=== PATIENT | male | born 1960 | race Caucasian/White ===

== ENCOUNTER 2017-07-27 18:26 | Emergency (ER) | payer OTHER, SELFPAY ==
[2017-07-27 18:26] VITALS: BP 151/94; PULSE 109; RESP 17; TEMP 36.6; O2SAT 95; BMI 40.1
[2017-07-27] MEDS: Ondansetron 4 MG/2 ML Vial IV (19:19)
[2017-07-27] MEDS: 0.9% Normal Saline 1,000 ML 1000 ML IV (19:19)
[2017-07-27] MEDS: Morphine 4 MG/ML Syringe IV (19:19)
--- NOTE | 2017-07-27 19:19 | ED.VISSUMM ---
- ER Visit Summary Date of Service: 07/27/17 Chief Complaint: Abdominal pain History of Present Illness: The patient is a 56 M presenting with abdominal pain ?2 days. Patient has diffuse abdominal pain. He went to urgent care on Thursday was started on steroids and doxycycline for bronchitis. He states sometimes the pain is worse when he coughs but otherwise has the pain consistently. He states he has been urinating frequently. He has history of diabetes. He does not check his blood sugar regularly. He denies nausea, vomiting, diarrhea. He had a fever on Thursday but is afebrile today. Denies chest pain or shortness of breath. Physical Examination: Vitals are stable. Patient is afebrile. Alert no acute distress. Pulse ox 95% on room air HEENT exam is unremarkable. Neck is supple. Lungs are clear and equal bilaterally. Heart is regular rate and rhythm. Abdomen is soft mild diffuse tenderness with no rebound or guarding. Extremities are unremarkable. Skin is warm and dry. No focal neurologic deficit. Remainder of exam is unremarkable. Emergency Department Course and Treatment: Patient is given IV fluids, morphine, Zofran. CBC is normal. Chemistries show glucose 513, BUN 49, creatinine 2.56. Anion gap is normal. Liver enzymes unremarkable. Lipase is 523. Urinalysis unremarkable. Patient was given IV fluids, insulin. Repeat BGT is 339. CT abdomen pelvis shows cholelithiasis, no biliary dilatation, possible focal right basilar infiltrate. Chest x-ray was obtained and is normal. He is currently taking doxycycline. He is advised to continue this medication. Records obtained from the [place] and his previous creatinine was 2.2. He is advised to follow-up with the [place]. He is advised to continue his insulin at home and recheck his blood sugars. He has had no vomiting in the emergency department. He is feeling improved. He is given a prescription for Bentyl. Advised to follow-up with his primary care physician. Advised return to ED if worsening complaints. Disposition: Discharge home Impression: Abdominal pain, hyperglycemia This note was generated with [employer] dictation software. It may contain incorrect words, spelling, and punctuation that were not noted in review of the chart prior to signing ED Disposition - Plan for ED Patient: Chief Complaint: Abd Pain Referrals: [facility] [Primary Care Provider] -
--- NOTE | 2017-07-27 19:27 | CT_ITS ---
STUDY: CT ABDOMEN AND PELVIS WITHOUT CONTRAST REASON FOR EXAM: Male, 56 years old. Pain RADIATION DOSAGE (If Supplied By Facility): CTDIvol = ( 19.20 ) mGy, DLP = ( 1041.02 ) mGycm TECHNIQUE: Transaxial images were obtained from the dome of the diaphragm to the symphysis pubis without oral contrast, and without intravenous contrast. Sagittal and coronal images were reconstructed. Individualized dose optimization techniques were used for this CT. COMPARISON: None. FINDINGS: Calcified right lung base granuloma an possible focal infiltrate. The visualized portions of the heart are within normal limits. Normal liver. Cholelithiasis. No significant dilatation of the extrahepatic biliary system. Normal spleen. Normal pancreas. Normal bilateral adrenal glands. Normal right kidney. Normal left kidney. Normal visualized stomach. Normal small intestine. Normal colon. The appendix is visualized and appears normal. Calcified abdominal aorta. Normal inferior vena cava. Normal retroperitoneum. Normal urinary bladder. Normal abdominal wall. Normal osseous structures. CT/Abdomen/Pelvis without Cont IMPRESSION: Cholelithiasis. Biliary dilatation. Possible focal right basilar infiltrate. Electronically Signed: Jhon Salomon DO at 20:00 EDT Tel [phone], Service support ,
[2017-07-27 19:36] LABS: Absolute Lymphocyte Count 0.87 X10^3/ul (0.83-4.51); Absolute Neutrophil Count 5.7 X10^3/uL (2.0-7.7); Basophil# 0.02 X10^3/uL; Basophil% 0.3 % (0-1); Hematocrit 42.2 % (40-54); Hemoglobin 14.3 g/dl (13.0-16.5); Lymphocyte # 0.87 X10^3/ul (4.0); Lymphocyte % 11.8 % (19-41); Mean Corp Hgb Conc 33.9 g/gl (32-36); Mean Corpuscular Hgb 29.1 pg (27.0-32.0); Mean Corpuscular Volume 85.8 fL (80-94); Monocyte# 0.76 X10^3/uL; Monocyte% 10.3 % (0-10); Neutrophil # 5.72 X10^3/uL (2.7-7.7); Neutrophil % 77.3 % (47-70); Platelet Count 197 K/mm3 (150-450); RBC Distribution Width CV 13.4 % (11.6-14.6); RBC Distribution Width SD 41.9 fl (35.1-43.9); Red Blood Count 4.92 M/mm3 (4.6-6.2); White Blood Count 7.4 K/mm3 (4.4-11.0)
[2017-07-27 19:40] LABS: POSITIVE COUNT NO; POSITIVE DIFFERENTIAL NO; POSITIVE MORPHOLOGY NO
[2017-07-27 20:11] LABS: ALB/GLOB Ratio 0.7 RATIO (0.9-2.4); AST(SGOT) 18 U/L (15-37); Alanine Aminotransfer ALT/SGPT 44 U/L (16-61); Albumin, Serum 3.1 g/dL (3.2-5.0); Alkaline Phosphatase 99 U/L (45-117); Anion Gap 12 (5-15); BUN 49 mg/dL (7-18); BUN/Creat Ratio 19.1 RATIO (10-20); Calcium,Total 8.4 mg/dL (8.5-10.1); Chloride 98 mmol/L (98-107); Creatinine, Serum 2.56 mg/dL (0.70-1.30); EST Glomerular Filtration Rate 28 mL/min (>60); Est Glom Filt Rate - Afr Amer 34 mL/min (>60); Estimated Creatinine Clearance 29.77 ml/min; Globulin 4.2 g/dL (2.2-4.2); Glucose 513 mg/dL (74-106); Lipase 523 U/L (73-393); Potassium 4.5 mmol/L (3.5-5.1); Protein, Total 7.3 g/dL (6.4-8.2); Sodium Level 134 mmol/L (136-145)
--- NOTE | 2017-07-27 20:13 | ED.RN ---
Critical glucose 513, RN and aware.
[2017-07-27 20:15] LABS: Bacteria 0 SEEN /hpf (None Seen); Mucous, Urine 0 SEEN /hpf (<or=2+); Squamous Epithelial Cells - UA 0 SEEN /hpf (0-5); White Blood Cells 0 SEEN /hpf (0-5)
[2017-07-27 20:16] LABS: Color, Urine Yellow (Yellow); Glucose, Dipstick 1000 mg/dl (Normal); Ketone-Dipstick Negative (Negative); Leukocyte Esterase-Dipstick Negative /ul (Negative); Nitrite-Dipstick Negative (Negative); Occult Blood-Urine 25 /ul (Negative); Protein-Dipstick 500 mg/dl (Negative); Specific Gravity, Urine 1.015 (1.002-1.030); Urine Bilirubin Dipstick Negative (Negative); Urine Clarity Clear (Clear); Urine Urobilinogen Normal (Normal)
--- NOTE | 2017-07-27 20:18 | ED.RN ---
Dr. Vigil aware of glucose level
[2017-07-27] MEDS: 0.9% Normal Saline 1,000 ML 999 ML IV (20:21)
[2017-07-27 20:26] LABS: Red Blood Cells-Urine 0-5 SEEN /hpf (0-5)
--- NOTE | 2017-07-27 20:52 | RAD_ITS ---
STUDY: X-RAY CHEST REASON FOR EXAM: Male, 56 years old. Cough TECHNIQUE: Frontal and lateral views COMPARISON: None. FINDINGS: The lungs are clear and expanded. There is no demonstrated pleural abnormality. Normal size heart. Normal mediastinum and emile. Normal visualized pulmonary arteries. Normal visualized aortic arch and descending thoracic aorta. Mild degenerative changes of the thoracic spine. Normal visualized ribs, clavicles, and shoulders. There is no demonstrated abnormality of the visualized soft tissue structures of the upper abdomen. RAD/Chest PA and Lateral IMPRESSION: Normal x-ray examination of the chest. Electronically Signed: Jhon Salomon DO at 21:12 EDT Tel [phone], Service support ,
[2017-07-27 21:35] LABS: Bedside Glucose 339 mg/dL (70-110)
--- NOTE | 2017-07-27 22:32 | ED.DEP ---
ED Disposition - Plan for ED Patient: Chief Complaint: Abd Pain Instructions: ED Abdominal Pain Unkn Cause Prescriptions: Dicyclomine HCl [Bentyl] 20 mg PO TIDAC #20 capsule Referrals: [facility] [Primary Care Provider] -
[2017-07-27] MEDS: Dicyclomine 10 MG Capsule 20 MG PO (22:33)
[2017-07-27 22:35] VITALS: BP 147/74; PULSE 72; RESP 16; O2SAT 93
== END 2017-07-27 22:40 | disposition home or self-care (01) ==
PROVIDERS: Emergency Provider Emergency Medicine
DX: R10.9 Unspecified abdominal pain (principal); E11.65 Type 2 diabetes mellitus with hyperglycemia; Z79.4 Long term (current) use of insulin; I10 Essential (primary) hypertension; E78.00 Pure hypercholesterolemia, unspecified; Z79.899 Other long term (current) drug therapy
CPT/HCPCS: 71046; 74176; 80053; 81001; 82962; 83690; 85025; 96361; 96374; 96375; 99283; J7030; A4216; J2405

== ENCOUNTER 2018-03-01 01:02 | Emergency (ER) | payer OTHER, SELFPAY ==
[2018-03-01 01:04] VITALS: BP 170/97; PULSE 100; RESP 18; TEMP 36.6; O2SAT 99; BMI 37.3
--- NOTE | 2018-03-01 01:12 | EKG12_ITS ---
Test Reason : WEAKNESS Blood Pressure : / mmHG Vent. Rate : 084 BPM Atrial Rate : 084 BPM P-R Int : 178 ms QRS Dur : 102 ms QT Int : 402 ms P-R-T Axes : 050 018 033 degrees QTc Int : 475 ms Normal sinus rhythm Normal ECG Confirmed by ALTON OLIVER, ELIZABETH ([id number]), editor magazine JOSEPH PERRY ([id number]) on 03/03/2018 11:11:39 AM Referred By: ANDRA Confirmed By:ELIZABETH DANG MD
[2018-03-01 01:21] LABS: Bedside Glucose 260 mg/dL (70-110)
[2018-03-01] MEDS: 0.9% Normal Saline 1,000 ML 1000 ML IV ×2 (01:22→02:09)
[2018-03-01 01:34] LABS: Absolute Lymphocyte Count 2.02 X10^3/ul (0.83-4.51); Absolute Neutrophil Count 5.9 X10^3/uL (2.0-7.7); Basophil# 0.09 X10^3/uL; Eosinophil# 0.26 X10^3/uL; Eosinophils% 2.9 % (0-5); Hematocrit 44.6 % (40-54); Hemoglobin 15.3 g/dl (13.0-16.5); Lymphocyte # 2.02 X10^3/ul (4.0); Lymphocyte % 22.1 % (19-41); Mean Corp Hgb Conc 34.3 g/gl (32-36); Mean Corpuscular Hgb 29.4 pg (27.0-32.0); Mean Corpuscular Volume 85.6 fL (80-94); Mean Platelet Vol. 9.7 fl (6.2-12.0); Monocyte# 0.78 X10^3/uL; Monocyte% 8.6 % (0-10); Neutrophil # 5.91 X10^3/uL (2.7-7.7); Neutrophil % 64.7 % (47-70); Platelet Count 268 K/mm3 (150-450); RBC Distribution Width CV 12.9 % (11.6-14.6); RBC Distribution Width SD 40.2 fl (35.1-43.9); Red Blood Count 5.21 M/mm3 (4.6-6.2); White Blood Count 9.1 K/mm3 (4.4-11.0)
[2018-03-01 01:40] LABS: POSITIVE COUNT NO; POSITIVE DIFFERENTIAL NO; POSITIVE MORPHOLOGY NO
[2018-03-01 01:49] LABS: AST(SGOT) 14 U/L (15-37); Alanine Aminotransfer ALT/SGPT 43 U/L (16-61); Albumin, Serum 3.8 g/dL (3.2-5.0); Alkaline Phosphatase 90 U/L (45-117); Anion Gap 9 (5-15); BUN 39 mg/dL (7-18); BUN/Creat Ratio 18.2 RATIO (10-20); Calcium,Total 9.7 mg/dL (8.5-10.1); Chloride 101 mmol/L (98-107); Creatinine, Serum 2.14 mg/dL (0.70-1.30); EST Glomerular Filtration Rate 34 mL/min (>60); Est Glom Filt Rate - Afr Amer 41 mL/min (>60); Estimated Creatinine Clearance 36.46 ml/min; Globulin 4.4 g/dL (2.2-4.2); Glucose 237 mg/dL (74-106); Potassium 4.5 mmol/L (3.5-5.1); Protein, Total 8.2 g/dL (6.4-8.2); Sodium Level 138 mmol/L (136-145)
[2018-03-01 02:15] LABS: Bacteria 0 SEEN /hpf (None Seen); Mucous, Urine 0 SEEN /hpf (<or=2+); Red Blood Cells-Urine 0 SEEN /hpf (0-5); Squamous Epithelial Cells - UA 0 SEEN /hpf (0-5); White Blood Cells 0 SEEN /hpf (0-5)
[2018-03-01 02:26] LABS: Color, Urine Yellow (Yellow); Glucose, Dipstick 1000 mg/dl (Normal); Ketone-Dipstick Negative (Negative); Leukocyte Esterase-Dipstick Negative /ul (Negative); Nitrite-Dipstick Negative (Negative); Occult Blood-Urine Negative /ul (Negative); Protein-Dipstick 500 mg/dl (Negative); Urine Bilirubin Dipstick Negative (Negative); Urine Clarity Clear (Clear); Urine Urobilinogen Normal (Normal)
--- NOTE | 2018-03-01 03:01 | ED.DCSUM_ITS ---
- ER Visit Summary Date of Service: 03/01/18 Chief Complaint: Muscle cramps History of Present Illness: The patient is a 57 M with muscle cramping and spasms for the past 1 week. These became significantly worse tonight. He states he checked his blood sugar and it read high at home. He took 60 units of NovoLog when his normal dose will be 50 presented to the ER stating he just did not feel right. He took his NovoLog approximately 2 and half hours prior to arrival. Patient denies chest pain or shortness of breath. He denies fever or chills. He has a history of type 2 diabetes, hypertension, high cholesterol. Physical Examination: Vital signs significant for blood pressure of 170/97 with a heart rate of 100. Head and neck examination is grossly unremarkable. Heart is regular rate and rhythm. Lung sounds are clear. Abdomen is soft nontender. Extremity examination was mild muscle tenderness in the legs. He has strong distal pulses with no significant edema. He has good strength and sensation on testing. Test Results: EKG is sinus 84 with no sign of acute ischemia. CBC is normal. Chemistry studies reveal glucose of 237. His BUN is 39 and creatinine is 2.14. Per prior visit notes his baseline creatinine is in the low 2 range. LFTs norm al. Urinalysis is significant for glucose, but no sign of infection. Serum acetone is negative. Emergency Department Course and Treatment: Patient was given 2 L of IV fluid. On repeat evaluation he is resting much more comfortably. He is advised to check his blood sugars daily and increase his fluids. He will follow-up with his doctor at the [place]. Treatment Plan: [] Disposition: Discharge Impression: 1. Hyperglycemia, improved 2. Myalgias, improved This note was generated with [employer] dictation software. It may contain incorrect words, spelling, and punctuation that were not noted in review of the chart prior to signing ED Disposition - Plan for ED Patient: Disposition: Home or Assisted Living Chief Complaint: Other, Pain/Inj Instructions: ED Hyperglycemia Diabetic, ED Muscle Aching Referrals: [facility] [Primary Care Provider] - As Needed
--- NOTE | 2018-03-01 03:03 | ED.DEP ---
ED Disposition - Plan for ED Patient: Disposition: Home or Assisted Living Chief Complaint: Other, Pain/Inj Instructions: ED Muscle Aching, ED Hyperglycemia Diabetic Referrals: [facility] [Primary Care Provider] - As Needed
[2018-03-01 03:08] VITALS: PULSE 68; PULSE 70; RESP 14; RESP 15; O2SAT 99
== END 2018-03-01 03:20 | disposition home or self-care (01) ==
PROVIDERS: Emergency Provider Emergency Medicine
DX: E11.65 Type 2 diabetes mellitus with hyperglycemia (principal); I10 Essential (primary) hypertension; E78.00 Pure hypercholesterolemia, unspecified; M79.10 Myalgia, unspecified site; Z79.4 Long term (current) use of insulin; Z79.899 Other long term (current) drug therapy; Z87.891 Personal history of nicotine dependence
CPT/HCPCS: 80048; 80076; 81001; 82009; 82962; 85025; 93005; 96360; 96361; 99284; J7030

== ENCOUNTER 2018-06-25 04:54 | Emergency (ER) | payer OTHER, SELFPAY ==
[2018-06-25 04:55] VITALS: BP 203/113; PULSE 81; RESP 16; TEMP 36.6; O2SAT 96; BMI 38.8
[2018-06-25] MEDS: Ketorolac 60 MG/2 ML Vial IM (05:13)
--- NOTE | 2018-06-25 05:19 | ED.DCSUM_ITS ---
- ER Visit Summary Date of Service: 06/25/18 Chief Complaint: Neck and right shoulder pain History of Present Illness: The patient is a 57 M with neck and right shoulder pain for 2 weeks. He came in overnight tonight because he could not sleep. He says he has chronic neck pain but the shoulder pain is new. It is in his right trapezius region. Nothing seemed to bring it on. Nothing seems to help it. He has tried Aleve and some topical medicine that his doctor prescribed. He denies any other associated issues like chest pain or shortness of breath. Denies weakness or numbness. Denies any vision changes, facial droop. Denies fevers or skin changes. Physical Examination: Afebrile and vital signs unremarkable except for a blood pressure of 203/113. Head and neck normal inspection. Neck is nontender. Right trapezius tender to palpation. Clavicle normal. Shoulder normal. Good range of motion. Arm unremarkable. Good strength and sensation. Skin appears normal. Cranial nerves grossly intact. Test Results: None performed Emergency Department Course and Treatment: Patient presents with myofascial pain. He cannot tolerate opioids. He was treated with Toradol. He was given a prescription for Flexeril. He did not receive a muscle relaxer here as he did not have of a ride. There is no indication for imaging or diagnostic testing. I do not believe this is referred pain, cardiac, respiratory, or vascular. No concerning neurologic findings. Patient is also very hypertensive. He said he ran out of his medications and is waiting for his mail order medications. He was able to give me the dose of his diltiazem and Zestoretic. He was given a dose here and a prescription. He was educated about hypertensive symptoms and will return if he has any issues, otherwise follow-up with his doctor for recheck. Treatment Plan: As above Disposition: Discharge Impression: 1. Right shoulder pain 2. Hypertension This note was generated with [employer] dictation software. It may contain incorrect words, spelling, and punctuation that were not noted in review of the chart prior to signing ED Disposition - Plan for ED Patient: Disposition: Home or Assisted Living Instructions: Neck Problems: Relieving Your Symptoms Prescriptions: RX: Diltiazem CD [Cardizem CD] 480 mg PO DAILY 30 Days #60 cap Lisinopril/Hydrochlorothiazide [Zestoretic 20-25 mg Tablet] 1 ea PO DAILY 30 Days #30 tab Cyclobenzaprine [Flexeril] 10 mg PO TID PRN #20 tab PRN Reason: Muscle Spasm Referrals: [facility] [Primary Care Provider] -
[2018-06-25] MEDS: dilTIAZem CD 240 MG Capsule 480 MG PO (05:54)
[2018-06-25] MEDS: Lisinopril 20 MG Tablet PO (05:55)
[2018-06-25] MEDS: hydroCHLOROthiazide 25 MG Tablet PO (05:55)
[2018-06-25 05:57] VITALS: BP 200/98; PULSE 75; RESP 18; O2SAT 96
== END 2018-06-25 05:58 | disposition home or self-care (01) ==
LOC: ED 05:12
PROVIDERS: Emergency Provider Emergency Medicine
DX: M25.511 Pain in right shoulder (principal); I10 Essential (primary) hypertension; E11.9 Type 2 diabetes mellitus without complications; Z79.4 Long term (current) use of insulin; Z79.899 Other long term (current) drug therapy; Z87.891 Personal history of nicotine dependence
CPT/HCPCS: 96372; 99283

== ENCOUNTER 2019-01-26 23:35 | Emergency (ER) | payer OTHER, SELFPAY ==
[2019-01-26 23:36] VITALS: BP 155/113; PULSE 108; RESP 18; TEMP 36.2; O2SAT 98; BMI 37.8
--- NOTE | 2019-01-26 23:51 | ED.DCSUM_ITS ---
History of Present Illness Chief Complaint: General Illness Informant: Patient Onset: Today Narrative: Generalized muscle cramps past 2 hours. No fevers or chills. Similar symptoms a year ago receiving IV fluids. Reports yesterday helping his brother move a refrigerator for the basement out, there is no injuries. No recent vomiting or diarrhea. History of diabetes. Denies urine symptoms. Prior similar symptoms: Yes Past Medical History - Allergies and Home Meds Allergies/Adverse Reactions: Allergies hydrocodone Allergy (Verified 06/25/18 04:58) Other Primary Care Physician: [facility],[place] [Primary Care Provider] - Smoking Status: Former smoker Review of Systems General: Denies: Chills, Fever, Sweats Eyes: Denies: Visual changes - bilaterally, Diplopia ENT: Denies: Rhinorrhea, Sore throat Cardiovascular: Denies: Chest pain, Palpitations Respiratory: Denies: Dyspnea, Cough, Dyspnea on exertion Gastrointestinal: Denies: Abdominal pain, Nausea, Vomiting, Diarrhea, Melena, Hematochezia Genitourinary: Denies: Dysuria, Hematuria, Frequency Musculoskeletal: Reports: Myalgias. Denies: Back pain, Extremity Pain Skin: Denies: Rash, Wounds Neurological: Denies: Headache, Weakness, Numbness Physical Exam Vital Signs/Narrative: Vital Signs Temp Pulse Resp BP Pulse Ox 01/26/19 23:36 97.2 F L 108 H 18 155/113 H 98 Inital Vital Signs reviewed: Yes General: Well nourished, Well developed, No Acute Distress Head: Normocephalic, Atraumatic Eyes: Perrl, EOMI ENT: Moist mucous membranes, No rhinorrhea Neck: Supple, Nontender Cardiovascular: Regular rate, Regular rhythm, No murmurs Respiratory: No distress, CTA bilaterally, Chest nontender Abdomen: Soft, Nontender, Nondistended, Normal bowel sounds Back: Nontender, Normal Inspection Extremities: Nontender, No edema, - - Soft compartments, pulses intact x4. Skin: Normal color, No rash Neurological: Alert, Oriented x3, Cranial nerves II-XII grossly intact, Normal Strength, Normal Sensation Psychological: Normal affect, Normal Mood Diagnostic/Tx/Re-eval Abnormal Lab Results 01/27/19 00:00 Sodium 134 L Potassium 3.8 Chloride 102 Carbon Dioxide 23.0 Anion Gap 9 BUN 51 H Creatinine 3.08 H Estim Creat Clear Calc 25.04 Est GFR (MDRD) Af Amer 27 L Est GFR (MDRD) Non-Af 22 L BUN/Creatinine Ratio 16.6 Glucose 237 H Calcium 9.0 - Medical Decision Making Patient vitals stable, nontoxic. Soft compartments. IV is placed given IV fluids. Recheck electrolytes glucose 220s potassium sodium normal creatinine of 3.08, from evaluation labs he is chronic kidney disease creatinine only 2.5. BUN and potassium is normal. Discussed continue oral hydration at home. He does not take NSAIDs. He will avoid that use Tylenol as needed. He will foll ow-up as an outpatient. All questions were answered. ED Disposition - Plan for ED Patient: Disposition: Home or Assisted Living Diagnosis: Myalgia, CKD (chronic kidney disease) Instructions: Myalgias, Chronic Kidney Disease Referrals: [facility] [Primary Care Provider] - 3-5 Days
[2019-01-27 00:02] VITALS: RESP 18
[2019-01-27] MEDS: 0.9% Normal Saline 1,000 ML 1000 ML IV (00:04)
[2019-01-27 00:25] LABS: Anion Gap 9 (5-15); BUN 51 mg/dL (7-18); BUN/Creat Ratio 16.6 RATIO (10-20); Chloride 102 mmol/L (98-107); Creatinine, Serum 3.08 mg/dL (0.70-1.30); EST Glomerular Filtration Rate 22 mL/min (>60); Est Glom Filt Rate - Afr Amer 27 mL/min (>60); Estimated Creatinine Clearance 25.04 ml/min; Glucose 237 mg/dL (74-106); Potassium 3.8 mmol/L (3.5-5.1); Sodium Level 134 mmol/L (136-145)
[2019-01-27 01:34] VITALS: BP 145/96; PULSE 96; RESP 16; O2SAT 97
== END 2019-01-27 01:20 | disposition home or self-care (01) ==
PROVIDERS: Emergency Provider Emergency Medicine
DX: M79.10 Myalgia, unspecified site (principal); E11.22 Type 2 diabetes mellitus with diabetic chronic kidney disease; N18.9 Chronic kidney disease, unspecified; Z87.891 Personal history of nicotine dependence
CPT/HCPCS: 80048; 96360; 96361; 99283; J7030

== ENCOUNTER 2019-03-28 22:30 | Emergency (ER) | payer OTHER, SELFPAY ==
[2019-03-28 22:32] VITALS: BP 148/71; PULSE 74; RESP 16; TEMP 36.6; O2SAT 96; BMI 40.4
--- NOTE | 2019-03-28 22:56 | RAD_ITS ---
HISTORY: COLD SYMPTOMS AND COUGH X 1 WEEK ADDITIONAL HISTORY: None provided. COMPARISON: 07/27/2017 TECHNIQUE: Frontal and lateral chest radiographs. Number of images including paperwork: 2 FINDINGS: LUNGS AND PLEURA: No consolidation, mass or pleural effusion. Peribronchial thickening. CARDIAC SILHOUETTE: Stable. MEDIASTINUM AND SETH: Unremarkable. UPPER ABDOMEN: Unremarkable. SKELETON AND SOFT TISSUES: No acute findings. Degenerative changes. OTHER DEVICES AND HARDWARE: None. RAD/Chest PA and Lateral IMPRESSION: Peribronchial thickening as can be seen with bronchitis and airways disease. at 2327 Reported and signed by: Fauzia Burrows MD Electronically Signed: Fauzia Burrows MD at 23:27 EST Tel , Service support ,
--- NOTE | 2019-03-28 22:57 | ED.DCSUM_ITS ---
History of Present Illness Chief Complaint: Abd Pain Detail of Chief Complaint: Cramping and muscle spasms Informant: Patient Onset: Days Context: Gradual Onset Timing: Waxes and wanes Current Severity: Mild Maximum Severity: Moderate Narrative: Patient has a history of chronic renal failure. Patient states when he starts get dehydrated he will note his hand started to cramp and spasm. He did notice his last few days and try to increase his water intake. Tonight at work the cramping got worse. He states he noted increased symptoms over his upper extremities and upper chest. Patient does report normal urine output. He does not know his baseline creatinine. Patient states this is happened multiple times in the past with similar symptoms and he usually improves after IV fluids. EMS was called and he is already had 500 cc of IV fluids. He does report his symptoms are significantly improved at this time. Patient does report having upper respiratory illness last week and continues to have a mild cough. No further fever or chills. - Past Medical History (1) Diabetes Status: Chronic (2) Chronic kidney disease Status: Chronic (3) Hypertension Status: Chronic (4) High cholesterol Status: Chronic Past Medical History - Allergies and Home Meds Allergies/Adverse Reactions: Allergies hydrocodone Allergy (Verified 06/25/18 04:58) Other Primary Care Physician: [facility],[place] [Primary Care Provider] - Prior records reviewed: Yes Lives: Spouse/ Significant Other Smoking Status: Former smoker Review of Systems General: Denies: Chills, Fever Eyes: Denies: Visual changes - bilaterally ENT: Denies: Bilateral ear pain, Sore throat Cardiovascular: Denies: Chest pain Respiratory: Reports: Cough. Denies: Dyspnea, Sputum Gastrointestinal: Denies: Abdominal pain, Nausea, Vomiting, Diarrhea Genitourinary: Denies: Dysuria Musculoskeletal: Reports: Myalgias, Extremity Pain - Cramping Skin: Denies: Rash Neurological: Denies: Headache, Parasthesia Hematologic: Denies: Easy bruising Allergy: Denies: Uticaria Physical Exam Vital Signs/Narrative: Vital Signs Temp Pulse Resp BP Pulse Ox 03/28/19 22:32 97.8 F 74 16 148/71 H 96 Inital Vital Signs reviewed: Yes General: Well nourished, Well developed Head: Normocephalic ENT: Moist mucous membranes Neck: Supple Cardiovascular: Regular rate, Regular rhythm Respiratory: No distress, CTA bilaterally Abdomen: Soft, Nontender Extremities: Nontender, No edema Skin: Normal color, No rash Neurological: Alert, Oriented x3 Psychological: Normal affect Diagnostic/Tx/Re-eval Impressions Chest X-Ray 03/28/19 22:56 IMPRESSION: Peribronchial thickening as can be seen with bronchitis and airways disease. at 2327 Reported and signed by: Fauzia Burrows MD Electronically Signed: Fauzia Burrows MD at 23:27 EST Tel , Service support , 03/28/19 22:56 Chest PA and Lateral [RAD] Stat Laboratory Results 03/28/19 22:30 Sodium 142 Potassium 3.7 Chloride 108 H Carbon Dioxide 26.0 Anion Gap 8 BUN 51 H Creatinine 2.66 H Estim Creat Clear Calc 28.99 Est GFR (MDRD) Af Amer 32 L Est GFR (MDRD) Non-Af 27 L BUN/Creatinine Ratio 19.2 Glucose 150 H Calcium 9.3 - Medical Decision Making Patient was given a liter of IV fluids here. On repeat evaluation he states his cramping is completely resolved. He does complain of a mild headache but states he just wants to take his Advil migraine that he normally takes at home. He will be discharged home with family this time. ED Disposition - Plan for ED Patient: Disposition: Home or Assisted Living Diagnosis: Muscle cramping Instructions: Muscle Spasm Referrals: [facility] [Primary Care Provider] - 1-2 Weeks
[2019-03-28] MEDS: 0.9% Normal Saline 1,000 ML 1000 ML IV (22:58)
[2019-03-28 23:16] LABS: Anion Gap 8 (5-15); BUN 51 mg/dL (7-18); BUN/Creat Ratio 19.2 RATIO (10-20); Calcium,Total 9.3 mg/dL (8.5-10.1); Chloride 108 mmol/L (98-107); Creatinine, Serum 2.66 mg/dL (0.70-1.30); EST Glomerular Filtration Rate 27 mL/min (>60); Est Glom Filt Rate - Afr Amer 32 mL/min (>60); Estimated Creatinine Clearance 28.99 ml/min; Glucose 150 mg/dL (74-106); Potassium 3.7 mmol/L (3.5-5.1); Sodium Level 142 mmol/L (136-145)
[2019-03-29 00:12] VITALS: BP 154/77; PULSE 74; RESP 16; O2SAT 97
== END 2019-03-29 00:13 | disposition home or self-care (01) ==
PROVIDERS: Emergency Provider Emergency Medicine
DX: R25.2 Cramp and spasm (principal); I12.9 Hypertensive chronic kidney disease with stage 1 through stage 4 chronic kidney disease, or unspecified chronic kidney disease; E11.22 Type 2 diabetes mellitus with diabetic chronic kidney disease; N18.9 Chronic kidney disease, unspecified; E78.00 Pure hypercholesterolemia, unspecified; Z79.4 Long term (current) use of insulin; Z79.899 Other long term (current) drug therapy; Z87.891 Personal history of nicotine dependence
CPT/HCPCS: 71046; 80048; 99283; A4216

== ENCOUNTER 2020-04-24 23:21 | Emergency (ER) | payer OTHER, SELFPAY ==
[2020-04-24 23:22] VITALS: BP 166/81; PULSE 78; RESP 16; TEMP 36.8; O2SAT 98; BMI 40.2
--- NOTE | 2020-04-24 23:34 | ED.VIS.GEN ---
History of Present Illness Chief Complaint: Lower Extremity Injury Detail of Chief Complaint: Atraumatic. Right ankle pain and swelling. Informant: Patient Onset: Weeks - 1.5 weeks ago Context: Sudden Onset Timing: Continuous Quality: Pain Location: Right ankle Current Severity: Mild Maximum Severity: Moderate Worsened by: Movement and walking Relieved by: Nothing Associated Symptoms: None Narrative: Patient is a 59-year-old male with diabetes who is poorly controlled. Last A1c was greater than 9. Patient states his blood sugars have been may be slightly higher than normal. He denies fever or chills. He denies history of gout or pseudogout. He states he is no longer on hydrochlorothiazide. He denies paresthesia, anesthesia or motor weakness. There is no history of trauma or twisting of the ankle. 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 He states it is always slightly swollen Prior similar symptoms: No Recent Illness/Hospitalization: No - Past Medical History (1) Chronic kidney disease Status: Chronic (2) Diabetes Status: Chronic (3) High cholesterol Status: Chronic (4) Hypertension Status: Chronic Past Medical History - Allergies and Home Meds Allergies/Adverse Reactions: Allergies hydrocodone Allergy (Verified 04/24/20 23:24) Other Primary Care Physician: [facility],[place] [Primary Care Provider] - Prior records reviewed: Yes Surgical History: noncontributory Lives: Alone Smoking Status: Former smoker Alcohol: None Drugs: None Review of Systems General: Denies: Chills, Fever, Malaise, Subjective Respiratory: Denies: Dyspnea, Cough Gastrointestinal: Denies: Nausea, Vomiting Genitourinary: Denies: Dysuria, Hematuria, Frequency Musculoskeletal: Reports: Swelling, Extremity Pain. Denies: Myalgias, Arthralgias, Neck pain, Back pain Skin: Reports: Rash - Redness medial aspect of right ankle, which patient is concerned about.. Denies: Wounds Neurological: Denies: Headache, Weakness, Parasthesia Endocrine: Denies: Polyuria, Polydipsia Hematologic: Denies: Easy bruising, Easy bleeding Allergy: Denies: Uticaria Physical Exam Vital Signs/Narrative: Vital Signs Temp Pulse Resp BP Pulse Ox 04/24/20 23:22 98.2 F 78 16 166/81 H 98 Inital Vital Signs reviewed: Yes General: Well nourished, Well developed, Obese Head: Normocephalic, Atraumatic Eyes: Perrl, EOMI. Negative for: Pale conjunctiva Cardiovascular: Regular rate, Regular rhythm Respiratory: No distress Extremities: Tenderness, - - There is an effusion right ankle. He does have pain with active range of motion. There is pain with extreme plantar and dorsiflexion. There is no warmth. There is no overlying erythema.. Negative for: Nontender, No edema Skin: Normal color, Rash - Is slight discoloration medial aspect of the right ankle inferior the medial malleolus and over the calcaneus. Neurological: Alert, Oriented x3, Cranial nerves II-XII grossly intact, Normal Strength, Normal Sensation Psychological: Normal affect Diagnostic/Tx/Re-eval Impressions Tibia/Fibula X-Ray 04/24/20 23:55 IMPRESSION: No acute findings in the tibia or fibula. Vascular calcifications. Electronically Signed: Cole Redd MD at 0:29 EST , Service support , 04/24/20 23:55 Tibia & Fibula 2 Views [RAD] Stat 04/25/20 01:20 Fluid - Synovial (joint) Gram Stain - Preliminary Laboratory Results 04/24/20 04/24/20 23:45 23:45 WBC 11.7 H RBC 4.31 L Hgb 12.2 L Hct 37.5 L MCV 87.0 MCH 28.3 MCHC 32.5 RDW Std Deviation 40.8 RDW Coeff of Jessica 12.7 Plt Count 327 MPV 10.0 Immature Gran % (Auto) 2.000 H Neut % (Auto) 66.6 Lymph % (Auto) 18.8 L [place] % (Auto) 7.9 Eos % (Auto) 3.8 Baso % (Auto) 0.9 Absolute Neuts (auto) 7.8 H Absolute Lymphs (auto) 2.20 Nucleated RBC % 0 ESR 101 H Sodium 137 Potassium 4.7 Chloride 105 Carbon Dioxide 23.0 Anion Gap 9 BUN 55 H Creatinine 3.24 H Estim Creat Clear Calc 23.52 Est GFR (MDRD) Af Amer 25 L Est GFR (MDRD) Non-Af 21 L BUN/Creatinine Ratio 17.0 Glucose 310 H Calcium 9.4 C-React Prot Ext Range 16.60 H Count is slightly elevated. There is no shift. Creatinine is 3.24, which is baseline. Glucose is elevated 310. There is no evidence of DKA. CO2 is normal with normal anion gap. C-reactive protein is elevated 16.6 and ESR is greater than 100. Patient was informed there is concern for pyogenic arthritis. He was explained risk benefits of arthrocentesis. He was given opportunity ask questions. None were asked. He did sign consent. 2 cc of bloody fluid was aspirated. Gram stain is negative. - Medical Decision Making Differential diagnosis includes pyogenic arthritis, crystal induced arthritis, osteoarthritis and hemarthrosis. X-ray was obtained as well as appropriate blood work. If there is no abnormality on the x-ray that explains his discomfort will discuss need for arthrocentesis and explained risk benefits. Procedures Procedure(s): Patient was informed of risk benefits of arthrocentesis. Patient is on no anticoagulant. The skin was prepped using Betadine and ChloraPrep. The skin was Nestabs with 1 side lidocaine. The joint was cannulated on second attempt. Aspirated 2 cc of blood. A mixture of 1 cc Kenalog and 4 cc 1% lidocaine was instilled into the ankle. The fluid was sent for Gram stain and culture.. Patient has a hemarthrosis. Uncertain why. Meds were reviewed and he is on no antiplatelet nor is he on an anticoagulant. He has no bruising noted anywhere. ED Disposition - Plan for ED Patient: Disposition: Home or Assisted Living Diagnosis: Hemarthrosis involving ankle joint, End stage renal disease on dialysis due to type 2 diabetes mellitus, Hyperglycemia due to type 2 diabetes mellitus Prescriptions: Hydrocodone Bitart/Apap 5-325 [[place] 5MG-325MG] 1 tab PO Q6H PRN PRN 3 Days #10 tab PRN Reason: Pain Prescription Printed Referrals: [facility] [Primary Care Provider] - Dwayne Lock DPM [STAFF PHYSICIAN] - 1-2 Days if not improving
--- NOTE | 2020-04-24 23:55 | RAD_ITS ---
STUDY: X-RAY - RIGHT TIBIA AND FIBULA REASON FOR EXAM: Male, 59 years old. Ankle pain for 2 days. No known injury. TECHNIQUE: 2 view(s) of the tibia and fibula were obtained. COMPARISON: None. FINDINGS: Normal visualized tibia. Normal visualized fibula. The soft tissue structures are unremarkable. Posterior vascular calcifications. RAD/Tibia & Fibula 2 Views IMPRESSION: No acute findings in the tibia or fibula. Vascular calcifications. Electronically Signed: Cole Redd MD at 0:29 EST , Service support ,
[2020-04-25 00:07] LABS: Anion Gap 9 (5-15); BUN 55 mg/dL (7-18); Calcium,Total 9.4 mg/dL (8.5-10.1); Chloride 105 mmol/L (98-107); Creatinine, Serum 3.24 mg/dL (0.70-1.30); EST Glomerular Filtration Rate 21 mL/min (>60); Est Glom Filt Rate - Afr Amer 25 mL/min (>60); Estimated Creatinine Clearance 23.52 ml/min; Glucose 310 mg/dL (74-106); Potassium 4.7 mmol/L (3.5-5.1); Sodium Level 137 mmol/L (136-145)
[2020-04-25 00:08] LABS: Absolute Neutrophil Count 7.8 X10^3/uL (2.0-7.7); Basophil% 0.9 % (0-1); Eosinophil# 0.44 X10^3/uL; Eosinophils% 3.8 % (0-5); Hematocrit 37.5 % (40-54); Hemoglobin 12.2 g/dL (13.0-16.5); Lymphocyte % 18.8 % (19-41); Mean Corp Hgb Conc 32.5 g/dL (32-36); Mean Corpuscular Hgb 28.3 pg (27.0-32.0); Monocyte# 0.92 X10^3/uL; Monocyte% 7.9 % (0-10); NRBC Flagged by Analyzer 0 % (0-5); Neutrophil % 66.6 % (47-70); Platelet Count 327 K/mm3 (150-450); RBC Distribution Width CV 12.7 % (11.6-14.6); RBC Distribution Width SD 40.8 fl (35.1-43.9); Red Blood Count 4.31 M/mm3 (4.6-6.2); White Blood Count 11.7 K/mm3 (4.4-11.0)
[2020-04-25 00:27] LABS: Erythrocyte Sedimentation Rate 101 mm/hr (0-20)
[2020-04-25] MEDS: Triamcinolone Acetonide 40 MG/ML Vial IU (01:24)
[2020-04-25] MEDS: Lidocaine 1% (20 ml mdv) 20 ML Vial INFILT (01:24)
[2020-04-25 04:18] VITALS: BP 146/89; PULSE 92; RESP 16; O2SAT 99
== END 2020-04-25 04:26 | disposition home or self-care (01) ==
PROVIDERS: Emergency Provider Emergency Medicine
DX: M25.071 Hemarthrosis, right ankle (principal); I12.0 Hypertensive chronic kidney disease with stage 5 chronic kidney disease or end stage renal disease; N18.6 End stage renal disease; E11.22 Type 2 diabetes mellitus with diabetic chronic kidney disease; E11.65 Type 2 diabetes mellitus with hyperglycemia; E78.00 Pure hypercholesterolemia, unspecified; E66.9 Obesity, unspecified; Z68.41 Body mass index [BMI] 40.0-44.9, adult; Z99.2 Dependence on renal dialysis; Z88.5 Allergy status to narcotic agent; Z79.4 Long term (current) use of insulin; Z79.899 Other long term (current) drug therapy; Z87.891 Personal history of nicotine dependence
CPT/HCPCS: 20605; 20610; 73590; 80048; 85025; 85652; 86140; 87070; 87075; 87205; 99282; A4216

== ENCOUNTER → 2020-05-07 08:59 | Outpatient (CLI) | payer OTHER, SELFPAY ==
[2020-04-24 23:22] VITALS: BMI 40.2
[2020-05-07 10:18] LABS: Uric Acid 9.1 mg/dL (3.5-7.2)
== END ==
PROVIDERS: Referring Provider Podiatrist; Visit Provider Podiatrist
DX: M10.9 Gout, unspecified (principal)
CPT/HCPCS: 36415; 84550

== ENCOUNTER → 2020-05-18 10:55 | Outpatient (CLI) | payer OTHER, SELFPAY ==
[2020-05-18 10:09] VITALS: BMI 37.3
--- NOTE | 2020-05-18 11:33 | RAD_ITS ---
STUDY: X-RAY - RIGHT KNEE REASON FOR EXAM: Right knee pain for years, more medial. TECHNIQUE: 3 view(s) of the knee. COMPARISON: Radiographs of the right tibia and fibula 04/24/2020. FINDINGS: Normal visualized distal femur. Normal visualized proximal tibia and fibula. Normal proximal tibiofibular articulation. There is mild joint space narrowing of the medial femorotibial compartment. There is mild joint space narrowing of the lateral femorotibial compartment. There is mild joint space narrowing of the patellofemoral articulation. There is a small enthesophyte at the superior pole of the patella. There is vascular calcification. RAD/Knee 3 Views IMPRESSION: Mild right knee arthrosis. Mild patellar enthesopathy. Electronically Signed: Jhonny Rosado MD at 11:53 EST Tel , Service support ,
[2020-05-18 13:23] LABS: Cholesterol 182 mg/dL (200); High Density Lipoprotein 43 mg/dL; Triglycerides 121 mg/dL; Very Low Density Lipoprotein 24 mg/dL (5-40)
[2020-05-18 13:40] LABS: Microalbumin:Creatinine Ratio 3368.9 mg/g CRE (<30 mg/g CRE)
== END ==
LOC: BIMLAB 10:56 → MTRAD 11:32
PROVIDERS: PCP Internal Medicine; Referring Provider Internal Medicine; Visit Provider Internal Medicine
DX: M17.11 Unilateral primary osteoarthritis, right knee (principal); I10 Essential (primary) hypertension; E78.5 Hyperlipidemia, unspecified; E11.9 Type 2 diabetes mellitus without complications
CPT/HCPCS: 36415; 73562; 80061; 82043; 82570

== ENCOUNTER → 2020-05-24 | Outpatient (CLI) | payer OTHER, SELFPAY ==
[2020-05-18 10:09] VITALS: BMI 37.3
[2020-05-24 18:49] LABS: Body Fluid QC Type(s) BF3Q
[2020-05-24 18:51] LABS: Source- Body Fluid SYNOVIAL
[2020-05-24 19:41] LABS: M R Staph aureus DNA By PCR Negative (Negative); Probe Check PASS; Specimen Processing Control PASS; Staph aureus DNA By PCR NEGATIVE (Negative)
[2020-05-25 13:14] LABS: Pathologist Review Reviewed
== END | disposition home or self-care (01) ==
PROVIDERS: PCP Internal Medicine; Referring Provider Podiatrist; Visit Provider Podiatrist
DX: M10.9 Gout, unspecified (principal)
CPT/HCPCS: 87070; 87075; 87205; 87640; 89060

== ENCOUNTER → 2020-06-22 10:47 | Outpatient (CLI) | payer OTHER, SELFPAY ==
[2020-06-22 09:24] VITALS: BMI 37.3
--- NOTE | 2020-06-22 10:50 | RAD_ITS ---
STUDY: X-RAY - CERVICAL SPINE REASON FOR EXAM: Male, 59 years old. Left hand weakness TECHNIQUE: 3 view(s) of the cervical spine were obtained. COMPARISON: None FINDINGS: Normal anterior atlantoaxial articulation. Normal odontoid process. There is straightening of the normal cervical lordosis. Disc space narrowing with anterior spondylosis at the C5-C6 and C6-C7 levels. Normal disc space heights. Normal visualized intervertebral neuroforamina. There are atherosclerotic vascular calcifications of the carotid arteries. RAD/Cerv Spine 2 or 3 Views IMPRESSION: Disc space narrowing and spondylosis at the C5-C6 and C6-C7 levels. Atherosclerotic calcification of the carotid bifurcations bilaterally. Electronically Signed: Scott Willson MD at 11:11 EST , Service support ,
== END ==
PROVIDERS: PCP Internal Medicine; Referring Provider Internal Medicine; Visit Provider Internal Medicine
DX: M47.812 Spondylosis without myelopathy or radiculopathy, cervical region (principal); M48.02 Spinal stenosis, cervical region
CPT/HCPCS: 72040

== ENCOUNTER → 2020-07-04 10:34 | Outpatient (CLI) | payer OTHER, SELFPAY ==
[2020-06-22 09:24] VITALS: BMI 37.3
--- NOTE | 2020-07-04 11:14 | MRI_ITS ---
STUDY: MRI RIGHT ANKLE WITHOUT CONTRAST REASON FOR EXAM: Male, 59 years old. LIGAMENT RUPTURE TECHNIQUE: Standardized fat and water weighted pulse sequences were obtained in all 3 orthogonal planes. COMPARISON: None. FINDINGS: Acute sprain of the anterior syndesmotic ligament without tear. Acute sprain with high-grade/near-complete tear of the anterior talofibular ligament. Acute posterior talofibular ligament sprain without tear. Normal deltoid ligament. Normal spring ligament. Normal sinus Tarsi/subtalar ligaments. Normal Lisfranc ligament. Soft tissue swelling posterior laterally. Small volume tibiotalar/subtalar joint effusion. Faint bone marrow edema/contusion at the fibula. No acute fracture, dislocation or osseous destruction. Mild posterior and flexor tenosynovitis (axial image 17 series 3). Mild peroneus longus and brevis tenosynovitis. Normal tibialis anterior tendon. Normal extensor hallucis longus tendon. Normal extensor digitorum longus tendons. Tiny plantar spur. Mild Achilles tendinosis. Normal muscles of the midfoot/hindfoot. Mild first tarsometatarsal joint arthrosis. Minimal talonavicular arthrosis. Remainder of the visualized cartilage intact. MRI/Lower Ext Joint Only (Routine) IMPRESSION: Acute ATFL sprain with high-grade/near-complete tear Acute anterior syndesmotic ligament sprain without tear Acute posterior talofibular ligament sprain without tear Mild multitendon tenosynovitis without tear Tiny plantar spur and mild Achilles tendinosis Soft tissue swelling with small joint effusion Electronically Signed: Scotty Barry DO at 10:17 EDT Tel , Service support ,
== END ==
PROVIDERS: PCP Internal Medicine; Referring Provider Podiatrist; Visit Provider Podiatrist
DX: S93.401A Sprain of unspecified ligament of right ankle, initial encounter (principal); M19.071 Primary osteoarthritis, right ankle and foot
CPT/HCPCS: 73721

== ENCOUNTER → 2020-08-06 10:06 | Outpatient (CLI) | payer OTHER, SELFPAY ==
[2020-06-22 09:24] VITALS: BMI 37.3
[2020-08-03 10:22] VITALS: BMI 38.2
--- NOTE | 2020-08-06 11:42 | NEURO_ITS ---
NCS and/or EMG Patient Report Ordering Doctor: Shukri Francisco DATE OF SERVICE: 08/06/20 Indication: Progressive weakness and muscle atrophy in the left upper extremity. Symptoms have been present for years, but continue to worsen. He denies any alteration of sensation in the extremity. He does have localized neck pain, but rare radicular symptoms. No similar changes in other limbs. No disturbance of speech or swallowing. History of diabetes (last HgbA1c 9.0%). Evaluate for cervical radiculopathy. Findings: Nerve conduction studies were performed in the left upper extremity. The left median motor study recording the abductor pollicis brevis showed a normal amplitude, prolonged distal latency and mildly slowed conduction velocity. The left ulnar motor study recording the abductor digiti minimi showed a markedly reduced amplitude, prolonged distal latency and slowed conduction velocity. Equivocal conduction block was present across the elbow. Left median-ulnar lumbrical / interosseous motor latencies showed a normal median latency compared to the ulnar. The left median sensory response recording digit two showed a reduced amplitude, prolonged latency and markedly slowed conduction velocity. The left ulnar sensory response recording digit five showed a slightly reduced amplitude, borderline latency and normal conduction velocity. The left radial sensory response recording over the extensor snuff box showed a normal amplitude, latency and conduction velocity. Needle EMG of the left upper extremity and cervical paraspinal muscles was performed. Active denervation was seen in every examined limb muscle (deltoid, triceps, biceps, first dorsal interosseous, abductor pollicis brevis). Fasciculation potential were seen in the first dorsal interosseous and abductor pollicis brevis. No quiet recording field was found in the cervical paraspinals, but no unequivocal fibrillations were seen. All muscles revealed large amplitude, long duration and polyphasic motor units with reduced recruitment. Activation was normal. Impression: This is a markedly abnormal and complex study. There is electrophysiologic evidence suggestive of an active, left cervical polyradiculopathy affecting the C5-T1 distributions. Radiographic correlation with MRI cervical spine is recommended. If there is no clear mechanical source identified, neurological evaluation can be considered for further evaluation of potential peripheral neurodegenerative etiologies. 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 The pathophysiology is primarily demyelination with some degree of secondary axonal loss. There is also evidence of a non- localizing ulnar neuropathy based on the reduced ulnar sensory amplitude. Lastly, please note: because of these co-existing conditions (radiculopathy and entrapment neuropathies), this study would be theoretically insensitive in detecting an additional superimposed brachial plexopathy. Aakash Penny D.O.
== END ==
PROVIDERS: PCP Internal Medicine; Referring Provider Internal Medicine; Visit Provider Internal Medicine
DX: M62.81 Muscle weakness (generalized) (principal)
CPT/HCPCS: 95886; 95910

== ENCOUNTER → 2020-08-07 09:58 | Outpatient (CLI) | payer OTHER, SELFPAY ==
[2020-07-20 09:24] VITALS: BMI 37.0
[2020-08-03 10:22] VITALS: BMI 38.2
--- NOTE | 2020-08-07 10:02 | CDU_ITS ---
Reason For Study: Carotid artery stenosis Rt. Velocities/BP Lt. Velocities/BP Prox CCA 72.1/20 cm/sec. Prox CCA 100.2/29 cm/sec. Mid CCA 85.2/27.8 cm/sec. Mid CCA 87.6/31.1 cm/sec. Dist CCA 66.9/26.5 cm/sec. Dist CCA 83.9/28.6 cm/sec. Prox ICA 88.1/22.9 cm/sec. Prox ICA 81.7/26.7 cm/sec. Mid ICA 79/37.3 cm/sec. Mid ICA 79.5/33.3 cm/sec. Dist ICA 64.7/24.3 cm/sec. Dist ICA 75.1/33.3 cm/sec. Rt. ICA/CCA = 1.22. Lt. ICA/CCA = 0.93. Prox ECA 126.9/33 cm/sec. Prox ECA 128/27 cm/sec. Rt. Vert. 36.7/11.1 cm/sec. Lt. Vert. 54.2/16.8 cm/sec. Right Extracranial There is heterogeneous, irregular atherosclerotic plaque noted in the right common carotid artery. There is heterogeneous, irregular atherosclerotic plaque noted in the right internal carotid artery. There is heterogeneous, irregular atherosclerotic plaque noted in the right external carotid artery. Antegrade flow is noted in the right vertebral artery. Left Extracranial There is homogeneous, irregular atherosclerotic plaque noted in the left common carotid artery. There is heterogeneous, irregular atherosclerotic plaque noted in the left internal carotid artery. There is heterogeneous, irregular atherosclerotic plaque noted in the left external carotid artery. Antegrade flow is noted in the left vertebral artery. Procedure This is a Carotid Duplex examination using B-mode, color flow and specral Doppler. Carotid Duplex 51645. Exam performed in department. VL/Carotid Duplex Ultrasound Interpretation Summary Scattered irregular plaque at the proximal right internal carotid artery with l ess than 50% stenosis Less than 50% stenosis right external carotid artery Irregular calcific plaque to the proximal left internal carotid artery with les s than 50% stenosis Less than 50% stenosis left external carotid artery Patent and antegrade vertebral arteries bilaterally Ordering Physician: Shukri Francisco Referring Physician: Shukri Francisco Performed By: Damari Brennan RVT and Student
== END ==
PROVIDERS: PCP Internal Medicine; Referring Provider Internal Medicine; Visit Provider Internal Medicine
DX: I65.23 Occlusion and stenosis of bilateral carotid arteries (principal)
CPT/HCPCS: 93880

== ENCOUNTER → 2020-08-22 16:48 | Outpatient (CLI) | payer OTHER, SELFPAY ==
[2020-08-03 10:22] VITALS: BMI 38.2
--- NOTE | 2020-08-22 16:48 | MRI_ITS ---
STUDY: MRI CERVICAL SPINE WITHOUT CONTRAST REASON FOR EXAM: Male, 60 years old. pain TECHNIQUE: Standardized fat and water weighted pulse sequences were obtained in the sagittal and axial planes. COMPARISON: Cervical spine x-rays 06/22/2020 FINDINGS: Normal foramen magnum and brainstem-cervical cord junction. Normal craniovertebral junction. Normal anterior atlantoaxial articulation. Normal odontoid process. Decreased cervical lordosis. Normal vertebral bodies and posterior osseous elements. C2-3: Normal endplates. Normal disc height, signal and morphology. Normal central canal and intervertebral neural foramina. C3-4: Normal endplates. Normal disc height, signal and mild bulging of the disc with tiny central disc protrusion. Mild narrowing of the central canal. Severe bilateral neuroforaminal stenosis secondary to disc and bony hypertrophy. C4-5: Normal endplates. Normal disc height, signal and tiny central disc protrusion.. Normal central canal and intervertebral neural foramina. C5-6: Mild endplate spurring.. Normal disc height, signal and mild bulging of the disc and bilateral posterolateral/foraminal disc protrusions.. Narrowing of the central canal and mild impingement upon the cord. Severe bilateral neuroforaminal stenosis C6-7: Normal endplates. Normal disc height, signal and mild bulging disc osteophyte complex and large left posterolateral/foraminal disc/osteophyte protrusion.. Narrowing the central canal with compression of the cord to the left of midline. Severe bilateral neuroforaminal stenosis secondary to disc and bony hypertrophy. C7-T1: Normal endplates. Normal disc height, signal and small left foraminal disc/osteophyte protrusion.. Normal central canal.. Severe left neuroforaminal stenosis Normal cervical cord. Normal visualized soft tissue structures. No significant change given the inherent differences in imaging modalities MRI/Spine Cervical (Routine) IMPRESSION: No evidence for acute fracture or other significant bony pathology.. Spondylosis and multilevel spinal stenosis secondary to disc disease and bony hypertrophy most severe at C5-6 and C6-7. Findings as above Electronically Signed: Dwayne Quick MD at 20:02 EDT , Service support ,
== END ==
PROVIDERS: PCP Internal Medicine; Referring Provider Orthopaedic Surgery; Visit Provider Orthopaedic Surgery
DX: M50.20 Other cervical disc displacement, unspecified cervical region (principal); M47.812 Spondylosis without myelopathy or radiculopathy, cervical region; M48.02 Spinal stenosis, cervical region; S14.3XXA Injury of brachial plexus, initial encounter; X58.XXXA Exposure to other specified factors, initial encounter
CPT/HCPCS: 72141

== ENCOUNTER → 2020-09-07 11:52 | Outpatient (CLI) | payer OTHER, SELFPAY ==
[2020-08-27 15:07] VITALS: BMI 38.2
[2020-09-07 15:37] LABS: Uric Acid 8.4 mg/dL (3.5-7.2)
== END ==
PROVIDERS: PCP Internal Medicine; Referring Provider Physician Assistant; Visit Provider Physician Assistant
DX: M10.9 Gout, unspecified (principal)
CPT/HCPCS: 36415; 84550

== ENCOUNTER 2020-11-22 01:51 | Emergency (ER) | payer OTHER, SELFPAY ==
[2020-10-23 13:47] VITALS: BMI 38.2
[2020-11-22 01:52] VITALS: BP 187/75; PULSE 92; RESP 16; TEMP 36.9; O2SAT 98; BMI 37.1
--- NOTE | 2020-11-22 02:02 | EDS_ITS ---
HPI History of Present Illness Chief Complaint: Lower Extremity Injury Informant: patient Narrative Narrative: 60-year-old male presents to the emergency department with left great toe pain. Patient states he noticed it today at work that his toe was sore. When he took his socks off he has noticed that the left great toe was red and appeared swollen over the lateral aspect of it. He was concerned about a ingrown toenail. He has seen Dr. Lock in the past for podiatry [facility] Medical History (Updated 11/22/20 @ 02:[address] Jimmie Collins, ) Arthritis Diabetes Gout Hyperlipemia Hypertension Home Medications insulin glargine 80 unit SQ DAILY 05/04/16 [History Last Taken 05/03/16 20:30] lisinopril-hydrochlorothiazide 1 ea PO DAILY 05/04/16 [History Last Taken 05/04/16 08:30] cholecalciferol (vitamin D3) 25 mcg (1,000 unit) capsule 75 mcg PO DAILY cap 05/18/20 [History Last Taken Unknown] diltiazem HCl 240 mg tablet,extended release 24 hr 480 mg PO DAILY tab 05/18/20 [History Last Taken Unknown] aspirin 81 mg tablet,delayed release 81 mg PO DAILY #90 tab 06/27/20 [Rx Last Taken Unknown] atorvastatin 80 mg tablet 80 mg PO QHS #90 tab 06/27/20 [Rx Last Taken Unknown] insulin aspart U-100 100 unit/mL (3 mL) subcutaneous pen 30 unit SC TIDCM ml 07/20/20 [History Last Taken Unknown] dulaglutide 3 mg/0.5 mL subcutaneous pen injector 3 mg SC QWEEK 90 Days #6.5 ml 10/23/20 [Rx Last Taken Unknown] allopurinol 100 mg tablet 200 mg PO DAILY #180 tab 10/29/20 [Rx Last Taken Unknown] cephalexin 500 mg PO Q6 #40 capsule 11/22/20 [Rx Last Taken Unknown] oxycodone-acetaminophen 1 tab PO Q6H PRN PRN 3 Days #12 tablet 11/22/20 [Rx Last Taken Unknown] Allergy/AdvReac Type Severity Reaction Status Date / Time hydrocodone AdvReac Space out Verified 11/22/20 01:52 Family History Father Diabetes Mother Hypertension Heart disease Other Arthritis Surgical History History of cataract extraction Social History Smoking Status: Former smoker quit date: 04/20/00 Tobacco: How many years used: 20 alcohol intake: current alcohol intake frequency: holidays/special occasions only Alcohol type: beer substance use type: does not use what type of physical activity do you participate in: none ROS ROS ED Constitutional Constitutional ED: Denies chills or weight loss Eyes Eyes: Denies change in vision or diplopia ENT ENT ED: Denies ear pain, rhinorrhea or sore throat Cardiovascular Cardiovascular: Denies chest pain, orthopnea, palpitations or racing heartbeat Respiratory/Chest Respiratory/Chest: Denies cough, dyspnea or orthopnea Gastrointestinal Gastrointestinal: Denies abdominal pain, diarrhea, nausea or vomiting Genitourinary Genitourinary ED: Denies dysuria, hematuria or urinary frequency Musculoskeletal Musculoskeletal: Reports other; Denies arthralgias or myalgias Integumentary Reports other Details: See history of present illness ; Denies abscess or rash Neurologic Neurologic: Denies headache(s) or weakness Psychiatric Psychiatric: Denies anxiety, depression, suicidal ideation or suicidal thoughts Endocrine Endocrinology: Denies polydipsia, polyphagia or polyuria Allergic/Immunologic Allergic/Immunologic ED: Denies mouth swelling, tongue swelling or urticaria EXAM Physical Exam Const Vital Signs: 11/22/20 01:52 Temperature 98.4 F Temperature Source Oral Pulse Rate 92 Respiratory Rate 16 Blood Pressure 187/75 H Blood Pressure Mean 112 Pulse Ox 98 Oxygen Delivery Method Room Air Positive well nourished and well developed General Appearance ED: well developed HEENT Reports normocephalic, head/scalp atraumatic and moist mucous membranes Eyes PERRL and EOMs intact bilaterally Neck no lymphadenopathy, supple and no JVD Resp normal respiratory effort and clear to auscultation bilaterally Cardio regular rate, regular rhythm and no murmurs GI normal to inspection, nondistended, normoactive bowel sounds and non-tender Palpation: soft Back/Spine no CVA tenderness and normal ROM Extremity Extremity Narrative: Left great toe over the lateral aspect demonstrates some mild swelling and erythema. There is an obvious paronychia. General Extremety ED: Negative for edema General Extremity: Negative for edema Neuro oriented x3 and CN's II-XII intact bilaterally Sensorium / Orientation: alert Motor Exam: strength 5/5 throughout Psych mental status grossly normal Mood & Affect: Negative for depressed or tearful Skin no rashes or lesions noted and no wounds MDM MDM MDM Narrative Medical decision making narrative: The paronychia was drained as best as possible. He will be placed on antibiotics. Instructions for warm soapy water. He should follow-up with podiatry Discharge Plan Triage Chief Complaint: Lower Extremity Injury Other Complaint: Wound ED Provider: Jimmie Collins Dx/Rx/DC Orders Clinical Impression: Paronychia of great toe of left foot Instructions: ED Paronychia of the Finger or Toe Prescriptions: New cephalexin [cephalexin] 500 MG capsule 500 mg PO Q6 Qty: 40 RF: 0 oxycodone-acetaminophen [oxycodone-acetaminophen] 1 TABLET tablet 1 tab PO Q6H PRN PRN (Reason: Pain) 3 Days Qty: 12 RF: 0 No Action cholecalciferol (vitamin D3) 25 mcg (1,000 unit) capsule 75 mcg PO DAILY RF: 0 diltiazem HCl 240 mg tablet extended release 24 hr 480 mg PO DAILY RF: 0 atorvastatin 80 mg tablet 80 mg PO QHS Qty: 90 RF: 3 aspirin 81 mg tablet,delayed release (DR/EC) 81 mg PO DAILY Qty: 90 RF: 3 insulin aspart U-100 100 unit/mL (3 mL) insulin pen 30 unit SC TIDCM RF: 0 insulin glargine 100 UNIT/ML solution 80 unit SQ DAILY RF: 0 lisinopril-hydrochlorothiazide 1 EACH tablet 1 ea PO DAILY RF: 0 dulaglutide 3 mg/0.5 mL pen injector 3 mg SC QWEEK 90 Days Qty: 6.5 RF: 3 allopurinol 100 mg tablet 200 mg PO DAILY Qty: 180 RF: 0 Primary Care Provider: Shukri Francisco Referrals: Shukri Francisco MD [Primary Care Provider] - Dwayne Lock DPM [STAFF PHYSICIAN] - As soon as possible Disposition Disposition: Home, Self Care
[2020-11-22] MEDS: Cephalexin 250 MG Capsule 500 MG PO (02:08)
[2020-11-22 02:09] VITALS: BP 178/68; PULSE 75; RESP 18
== END 2020-11-22 02:09 | disposition home or self-care (01) ==
PROVIDERS: Emergency Provider Emergency Medicine; PCP Internal Medicine
DX: L03.032 Cellulitis of left toe (principal); I10 Essential (primary) hypertension; E11.9 Type 2 diabetes mellitus without complications; E78.5 Hyperlipidemia, unspecified; M10.9 Gout, unspecified; M19.90 Unspecified osteoarthritis, unspecified site; Z79.4 Long term (current) use of insulin; Z79.82 Long term (current) use of aspirin; Z79.899 Other long term (current) drug therapy; Z87.891 Personal history of nicotine dependence
CPT/HCPCS: 10060; 99283

== ENCOUNTER → 2020-11-28 09:51 | Outpatient (CLI) | payer OTHER, SELFPAY ==
[2020-11-28 09:20] VITALS: BMI 36.8
[2020-11-28 12:16] LABS: Absolute Lymphocyte Count 1.38 X10^3/uL (0.83-4.51); Absolute Neutrophil Count 7.4 X10^3/uL (2.0-7.7); Basophil# 0.09 X10^3/uL; Basophil% 0.9 % (0-1); Eosinophil# 0.41 X10^3/uL; Eosinophils% 4.1 % (0-5); Hematocrit 39.1 % (40-54); Lymphocyte # 1.38 X10^3/ul (0.83-4.51); Lymphocyte % 13.7 % (19-41); Mean Corp Hgb Conc 33.2 g/dL (32-36); Mean Corpuscular Hgb 30.1 pg (27.0-32.0); Mean Corpuscular Volume 90.5 fL (80-94); Mean Platelet Vol. 10.6 fl (6.2-12.0); Monocyte# 0.71 X10^3/uL; Monocyte% 7.1 % (0-10); NRBC Flagged by Analyzer 0 % (0-5); Neutrophil # 7.44 X10^3/uL (2.7-7.7); Neutrophil % 73.8 % (47-70); Platelet Count 289 K/mm3 (150-450); RBC Distribution Width CV 13.8 % (11.6-14.6); Red Blood Count 4.32 M/mm3 (4.6-6.2); White Blood Count 10.1 K/mm3 (4.4-11.0)
[2020-11-28 12:31] LABS: Anion Gap 7 (5-15); BUN 41 mg/dL (7-18); BUN/Creat Ratio 12.1 RATIO (10-20); Calcium,Total 10.4 mg/dL (8.5-10.1); Chloride 105 mmol/L (98-107); Creatinine, Serum 3.38 mg/dL (0.70-1.30); EST Glomerular Filtration Rate 20 mL/min (>60); Est Glom Filt Rate - Afr Amer 24 mL/min (>60); Glucose 224 mg/dL (74-106); Potassium 4.4 mmol/L (3.5-5.1); Sodium Level 140 mmol/L (136-145)
[2020-11-28 12:41] LABS: Thyroid Stim Hormone (TSH) 3.54 uIU/mL (0.358-3.74)
[2020-11-28 12:56] LABS: HIV - WCH Non-Reactive (Nonreactive); Hepatitis B Surface Antibody Non-Reactive
[2020-11-28 13:15] LABS: Magnesium 1.9 mg/dL (1.6-2.6)
[2020-11-28 14:08] LABS: Uric Acid 7.2 mg/dL (3.5-7.2)
[2020-11-29 08:08] LABS: HEPATITIS B SURFACE AG Negative (Negative); Hepatitis A IgM Antibody Negative (Negative); Hepatitis B Core AB IgM Negative (Negative)
[2020-11-29 09:29] LABS: Hep C Antibodies 0.1 s/co ratio (0.0-0.9)
== END ==
PROVIDERS: Anesthesiology; Orthopaedic Surgery; Physician Assistant; PCP Internal Medicine; Referring Provider Nurse Practitioner Family; Visit Provider Nurse Practitioner Family
DX: Z01.812 Encounter for preprocedural laboratory examination (principal); M10.9 Gout, unspecified
CPT/HCPCS: 36415; 80048; 80074; 83735; 84443; 84550; 85025; 86703; 86706; 87081

== ENCOUNTER → 2020-11-28 12:38 | Outpatient (CLI) | payer OTHER, SELFPAY ==
[2020-09-07 13:01] VITALS: BMI 38.2
--- NOTE | 2020-11-28 08:44 | EKG12_ITS ---
Test Reason : PRE OP Blood Pressure : / mmHG Vent. Rate : 080 BPM Atrial Rate : 080 BPM P-R Int : 160 ms QRS Dur : 154 ms QT Int : 412 ms P-R-T Axes : 070 083 041 degrees QTc Int : 475 ms Normal sinus rhythm Right bundle branch block Abnormal ECG Confirmed by PARVIZ OLIVER, TANISHA ([id number]), sports editor ABI LONGO ([id number]) on 11/29/2020 10:41:34 AM Referred By: Shai Johnston Confirmed By:TANISHA JJ MD
== END ==
PROVIDERS: PCP Internal Medicine; Referring Provider Orthopaedic Surgery; Visit Provider Orthopaedic Surgery
DX: Z01.810 Encounter for preprocedural cardiovascular examination (principal); I45.10 Unspecified right bundle-branch block
CPT/HCPCS: 93005

== ENCOUNTER 2021-04-15 20:05 | Emergency (ER) | payer OTHER, SELFPAY ==
[2021-04-15 20:06] VITALS: BP 185/96; PULSE 91; RESP 18; TEMP 35.8; O2SAT 95; BMI 37.9
[2021-04-15 20:35] LABS: Bacteria 0 SEEN /hpf (None Seen); Mucous, Urine 0 SEEN /hpf (<or=2+); Squamous Epithelial Cells - UA 0 SEEN /hpf (0-5); White Blood Cells 0 SEEN /hpf (0-5)
[2021-04-15 20:39] LABS: Color, Urine Yellow (Yellow); Glucose, Dipstick 100 mg/dl (Normal); Ketone-Dipstick Negative (Negative); Leukocyte Esterase-Dipstick Negative /ul (Negative); Nitrite-Dipstick Negative (Negative); Occult Blood-Urine 25 /ul (Negative); Protein-Dipstick 500 mg/dl (Negative); Urine Bilirubin Dipstick Negative (Negative); Urine Clarity Clear (Clear); Urine Urobilinogen Normal (Normal)
[2021-04-15 21:04] LABS: Red Blood Cells-Urine 0-5 SEEN /hpf (0-5)
--- NOTE | 2021-04-15 22:20 | CT_ITS ---
EXAM: CT ABDOMEN AND PELVIS WITHOUT INTRAVENOUS CONTRAST CLINICAL INDICATION: urinary retention TECHNIQUE: Helically acquired images were obtained of the abdomen and pelvis without intravenous contrast. CTDIvol = ( 14.55 ) mGy, DLP = ( 1067.47 ) mGycm This CT exam was performed using one or more of the following dose reduction techniques: automated exposure control, adjustment of the mA and/or kV according to patient size, and/or use of iterative reconstruction technique. This report was created using [employer] report generation technology. COMPARISON: CT abdomen pelvis 07/27/2017 FINDINGS: LOWER THORAX: Unremarkable. Lung bases are clear. No cardiomegaly. No significant pericardial effusion. ABDOMEN: LIVER: Unremarkable. Homogeneous. GALLBLADDER AND BILE DUCTS: Cholelithiasis without acute cholecystitis. No intra- or extrahepatic biliary ductal dilation. PANCREAS: Unremarkable. No focal cystic mass. SPLEEN: Unremarkable. Normal size without focal cystic or solid mass. ADRENALS: Unremarkable. No nodules. KIDNEYS AND URETERS: Unremarkable. Normal renal size and position. No hydronephrosis. STOMACH AND BOWEL: Distal colonic diverticulosis but no acute diverticulitis. No colitis or bowel obstruction. PELVIS: APPENDIX: No evidence of acute appendicitis. BLADDER: Decompressed appearance of bladder prominent wall although there is no significant adjacent stranding. REPRODUCTIVE: Prominent prostate is nonspecific. Correlate with PSA levels. ABDOMEN and PELVIS: INTRAPERITONEAL SPACE: No free air or free fluid. BONES/JOINTS: No suspicious lytic or sclerotic lesions of bone. Degenerative changes of the spine and pelvis. SOFT TISSUES: Subcutaneous fluid density along the left anterior abdomen. No organized fluid collections. No discrete abdominal or pelvic wall hernia. VASCULATURE: Unremarkable. Abdominal aorta is non-dilated. LYMPH NODES: Unremarkable. No enlarged lymph nodes. CT/Abdomen/Pelvis without Cont IMPRESSION: 1. Cholelithiasis without acute cholecystitis. 2. No other acute or inflammatory disease or bowel obstruction. Electronically Signed: Darrel Keyes MD at 23:23 EST Tel , Service support ,
--- NOTE | 2021-04-15 22:21 | EDS_ITS ---
HPI History of Present Illness Chief Complaint: Complaint Narrative Narrative: Patient with past medical history of hypertension and diabetes presents with urinary retention since yesterday evening. He states he cannot get a full stream unless he waits and strains, then he will have a stream of urine for approximately 30 seconds. He does not feel like he is emptying his bladder completely. He denies any fevers or chills. No nausea or vomiting. He does have suprapubic abdominal discomfort. He states he started with constipation today. He has the feeling that he has to have a bowel movement, and gets a lot of pressure on his bladder. He states that he thinks he has past medical history of chronic kidney injury. He presents mainly because of the inability to urinate and the feeling that he is not emptying his bladder completely. [facility] Medical History Arthritis Diabetes Edentulous Former smoker Gout Hyperlipemia Hypertension Poor kidney function Preoperative clearance Redness of skin Wears glasses Home Medications lisinopril-hydrochlorothiazide 1 ea PO DAILY 05/04/16 [History Last Taken 05/04/16 08:30] cholecalciferol (vitamin D3) 25 mcg (1,000 unit) capsule 75 mcg PO DAILY cap 05/18/20 [History Last Taken Unknown] diltiazem HCl 240 mg tablet,extended release 24 hr 480 mg PO DAILY tab 05/18/20 [History Last Taken Unknown] insulin aspart U-100 100 unit/mL (3 mL) subcutaneous pen 35 unit SC TIDCM ml 07/20/20 [History Last Taken Unknown] acetaminophen 650 mg PO Q4H PRN 11/27/20 [History Last Taken Unknown] clotrimazole-betamethasone 1 %-0.05 % topical cream 1 applic TOPICAL BID 14 Days #45 g 11/28/20 [Rx Last Taken Unknown] allopurinol 300 mg tablet 300 mg PO DAILY #90 tab 01/30/21 [Rx Last Taken Unknown] insulin glargine 100 unit/mL subcutaneous solution 86 unit SUBCUT QHS ml 03/13/21 [History Last Taken Unknown] aspirin 81 mg tablet,delayed release 81 mg PO DAILY #90 tab 04/08/21 [Rx Last Taken Unknown] atorvastatin 80 mg tablet 80 mg PO QHS #90 tab 04/08/21 [Rx Last Taken Unknown] dulaglutide 4.5 mg SC SUE 04/15/21 [History Last Taken Unknown] Allergy/AdvReac Type Severity Reaction Status Date / Time hydrocodone AdvReac Space out Verified 04/15/21 20:09 Family History Father Diabetes Mother Hypertension Heart disease Other Arthritis Surgical History History of cataract extraction History of colonoscopy Social History Smoking Status: Former smoker quit date: 04/20/00 Tobacco: How many years used: 20 alcohol intake: current alcohol intake frequency: holidays/special occasions only Alcohol type: beer substance use type: does not use what type of physical activity do you participate in: none ROS ROS ED ROS Narrative Constitutional: No fever, no chills. HEENT: No sore throat. No neck pain. No loss of vision. No rhinorrhea. Cardiovascular: No chest pain. No palpitations. No pedal edema. Respiratory: No cough, no shortness of breath. Abdominal: Suprapubic discomfort/abdominal pain. No nausea. No vomiting. Constipation. Genitourinary: Positive dysuria. Feeling of incomplete bladder emptying. No hematuria. Musculoskeletal: No myalgias. No arthralgias. Neurologic: No headaches. No dizziness. No lightheadedness. Skin: No rash. No change in color. Psychiatric: No depression. No anxiety. EXAM Physical Exam Narrative Exam Narrative: Afebrile. Vital signs noted. HEENT: Normocephalic. Atraumatic. PERRL, EOMI. Neck soft and supple. No point tenderness or step off. Cardiovascular: Regular rate and rhythm. No murmurs, rubs, or gallops appreciated. Respiratory: No tachypnea. Lungs clear to auscultation bilaterally. Gastrointestinal: Abdomen soft, minimal tenderness suprapubically, positive bladder distention, with normoactive bowel sounds. No rebound or guarding. Neurological: Awake. Alert. Nonfocal, nonlateralizing. Skin: No rash. Normal color. No pallor. Musculoskeletal: No pedal edema. Full range of motion extremities. Const Vital Signs: 04/15/21 20:06 04/15/21 22:40 Temperature 96.5 F L Temperature Source Temporal Pulse Rate 91 Respiratory Rate 18 16 Blood Pressure 185/96 H Blood Pressure Mean 125 Pulse Ox 95 Oxygen Delivery Method Room Air MDM MDM MDM Narrative Medical decision making narrative: Comprehensive work-up was pursued. I will perform a post void residual catheterization. He has an elevated white count of 14.7, which I think is nonspecific. Hemoglobin stable at 12.6. His urinalysis shows no evidence of infection, negative nitrites, negative leukocytes, and 0-5 RBCs with 0 WBCs. His basic metabolic panel/electrolyte panel shows his creatinine elevated at 3.8, which appears to be his baseline. He states he is following up with a marine radio installer and servicer at the [place] of the abdomen and pelvis shows no acute process, no ureteral obstruction or hydronephrosis. No bowel obstruction. Patient was able to urinate and had a post void residual of only 55 cc. He does not want a urinary catheter placed. He will be referred to Dr. Sal for further work-up of his sensation of incomplete bladder emptying. He states that he feels well after urinating, and does not have a pressure sensation. I feel he can be discharged safely home. Return instructions to the emergency department were reviewed. Disposition is discharged home in stable condition. Lab Data Attestation: I reviewed the patient's lab results. Labs: Laboratory Results - last 24 hr 04/15/21 04/15/21 04/15/21 20:15 22:35 22:35 WBC 14.7 H RBC 4.33 L Hgb 12.6 L Hct 39.2 L MCV 90.5 MCH 29.1 MCHC 32.1 RDW Std Deviation 47.2 H RDW Coeff of Jessica 14.3 Plt Count 249 MPV 9.9 Immature Gran % (Auto) 0.500 Neut % (Auto) 79.3 H Lymph % (Auto) 10.1 L Mercer % (Auto) 6.3 Eos % (Auto) 2.8 Baso % (Auto) 1.0 Absolute Neuts (auto) 11.6 H Absolute Lymphs (auto) 1.48 Nucleated RBC % 0 Sodium Cancelled Potassium Cancelled Chloride Cancelled Carbon Dioxide Cancelled Anion Gap Cancelled BUN Cancelled Creatinine Cancelled Estim Creat Clear Calc Cancelled Est GFR (MDRD) Af Amer Cancelled Est GFR (MDRD) Non-Af Cancelled BUN/Creatinine Ratio Cancelled Glucose Cancelled Calcium Cancelled Urine Color Yellow Urine Clarity Clear Urine pH 5.0 Ur Specific [place] 1.020 Urine Protein 500 H Urine Glucose (UA) 100 H Urine Ketones Negative Urine Occult Blood 25 H Urine Nitrite Negative Urine Bilirubin Negative Urine Urobilinogen Normal Ur Leukocyte Esterase Negative Urine RBC 0-5 SEEN Urine WBC 0 SEEN Ur Squamous Epith Cells 0 SEEN Urine Bacteria 0 SEEN Urine Mucus 0 SEEN 04/15/21 23:18 WBC RBC Hgb Hct MCV MCH MCHC RDW Std Deviation RDW Coeff of Jessica Plt Count MPV Immature Gran % (Auto) Neut % (Auto) Lymph % (Auto) Mercer % (Auto) Eos % (Auto) Baso % (Auto) Absolute Neuts (auto) Absolute Lymphs (auto) Nucleated RBC % Sodium 139 Potassium 4.8 Chloride 109 H Carbon Dioxide 24.0 Anion Gap 6 BUN 64 H Creatinine 3.80 H Estim Creat Clear Calc 19.12 Est GFR (MDRD) Af Amer 21 L Est GFR (MDRD) Non-Af 17 L BUN/Creatinine Ratio 16.8 Glucose 196 H Calcium 10.6 H Urine Color Urine Clarity Urine pH Ur Specific [place] Urine Protein Urine Glucose (UA) Urine Ketones Urine Occult Blood Urine Nitrite Urine Bilirubin Urine Urobilinogen Ur Leukocyte Esterase Urine RBC Urine WBC Ur Squamous Epith Cells Urine Bacteria Urine Mucus Radiography Diagnostic Testing: Clinical Impression(s) from Imaging Studies Abdomen/Pelvis CT 04/15/21 22:20 IMPRESSION: 1. Cholelithiasis without acute cholecystitis. 2. No other acute or inflammatory disease or bowel obstruction. Electronically Signed: Darrel Keyes MD at 23:23 EST Tel , Service support , Discharge Plan Triage Chief Complaint: Complaint ED Provider: Mario Rasmussen Dx/Rx/DC Orders Clinical Impression: Dysuria, Abdominal pain, Incomplete emptying of bladder, Chronic kidney disease Instructions: ED Dysuria, Uncertain Cause (Adult), ED Urinary Retention, Male, ED Symptoms With Uncertain Cause Prescriptions: No Action cholecalciferol (vitamin D3) 25 mcg (1,000 unit) capsule 75 mcg PO DAILY RF: 0 diltiazem HCl 240 mg tablet extended release 24 hr 480 mg PO DAILY RF: 0 insulin aspart U-100 100 unit/mL (3 mL) insulin pen 35 unit SC TIDCM RF: 0 clotrimazole-betamethasone 1-0.05 % cream 1 applic topical BID 14 Days Qty: 45 RF: 1 lisinopril-hydrochlorothiazide 1 EACH tablet 1 ea PO DAILY RF: 0 insulin glargine 100 unit/mL solution 86 unit subcut QHS RF: 0 acetaminophen 325 mg Tablet 650 mg PO Q4H PRN (Reason: Pain) RF: 0 dulaglutide 3 mg/0.5 mL pen injector 4.5 mg SC SUE RF: 0 allopurinol 300 mg tablet 300 mg PO DAILY Qty: 90 RF: 1 aspirin 81 mg tablet,delayed release (DR/EC) 81 mg PO DAILY Qty: 90 RF: 3 atorvastatin 80 mg tablet 80 mg PO QHS Qty: 90 RF: 3 Primary Care Provider: Shukri Francisco Referrals: Shukri Francisco MD [Primary Care Provider] - Jaspal Sal MD [STAFF PHYSICIAN] - 04/17/21 Disposition Disposition: Home, Self Care
[2021-04-15 22:40] VITALS: RESP 16
[2021-04-15 22:45] LABS: Absolute Lymphocyte Count 1.48 X10^3/uL (0.83-4.51); Absolute Neutrophil Count 11.6 X10^3/uL (2.0-7.7); Basophil# 0.14 X10^3/uL; Eosinophil# 0.41 X10^3/uL; Eosinophils% 2.8 % (0-5); Hematocrit 39.2 % (40-54); Hemoglobin 12.6 g/dL (13.0-16.5); Lymphocyte # 1.48 X10^3/ul (0.83-4.51); Lymphocyte % 10.1 % (19-41); Mean Corp Hgb Conc 32.1 g/dL (32-36); Mean Corpuscular Hgb 29.1 pg (27.0-32.0); Mean Corpuscular Volume 90.5 fL (80-94); Mean Platelet Vol. 9.9 fl (6.2-12.0); Monocyte# 0.93 X10^3/uL; Monocyte% 6.3 % (0-10); NRBC Flagged by Analyzer 0 % (0-5); Neutrophil # 11.61 X10^3/uL (2.7-7.7); Neutrophil % 79.3 % (47-70); Platelet Count 249 K/mm3 (150-450); RBC Distribution Width CV 14.3 % (11.6-14.6); RBC Distribution Width SD 47.2 fl (35.1-43.9); Red Blood Count 4.33 M/mm3 (4.6-6.2); White Blood Count 14.7 K/mm3 (4.4-11.0)
[2021-04-15 23:39] LABS: Anion Gap 6 (5-15); BUN 64 mg/dL (7-18); BUN/Creat Ratio 16.8 RATIO (10-20); Calcium,Total 10.6 mg/dL (8.5-10.1); Chloride 109 mmol/L (98-107); EST Glomerular Filtration Rate 17 mL/min (>60); Est Glom Filt Rate - Afr Amer 21 mL/min (>60); Estimated Creatinine Clearance 19.12 ml/min; Glucose 196 mg/dL (74-106); Potassium 4.8 mmol/L (3.5-5.1); Sodium Level 139 mmol/L (136-145)
[2021-04-16 00:29] VITALS: RESP 14
== END 2021-04-16 00:31 | disposition home or self-care (01) ==
PROVIDERS: Emergency Provider Emergency Medicine; PCP Internal Medicine
DX: R30.0 Dysuria (principal); R33.9 Retention of urine, unspecified; R10.9 Unspecified abdominal pain; K80.20 Calculus of gallbladder without cholecystitis without obstruction; I12.9 Hypertensive chronic kidney disease with stage 1 through stage 4 chronic kidney disease, or unspecified chronic kidney disease; E11.22 Type 2 diabetes mellitus with diabetic chronic kidney disease; N18.9 Chronic kidney disease, unspecified; E78.5 Hyperlipidemia, unspecified; M10.9 Gout, unspecified; M19.90 Unspecified osteoarthritis, unspecified site; Z79.4 Long term (current) use of insulin; Z79.82 Long term (current) use of aspirin; Z79.899 Other long term (current) drug therapy; Z87.891 Personal history of nicotine dependence
CPT/HCPCS: 74176; 80048; 81001; 85025; 87086; 99282; A4216

== ENCOUNTER 2021-07-08 09:03 | Outpatient (CLI) | payer OTHER, SELFPAY ==
[2021-07-08 12:25] LABS: Anion Gap 5 (5-15); BUN 57 mg/dL (7-18); BUN/Creat Ratio 14.2 RATIO (10-20); Calcium,Total 9.6 mg/dL (8.5-10.1); Chloride 108 mmol/L (98-107); EST Glomerular Filtration Rate 16 mL/min (>60); Est Glom Filt Rate - Afr Amer 20 mL/min (>60); Glucose 149 mg/dL (74-106); Potassium 4.6 mmol/L (3.5-5.1); Sodium Level 143 mmol/L (136-145)
[2021-07-08 12:35] LABS: PTHIN 63.1 pg/mL (18.4-80.1)
[2021-07-08 12:43] LABS: Vitamin D,25 Hydroxy 34.1 ng/mL
[2021-07-08 13:12] LABS: Uric Acid 5.5 mg/dL (3.5-7.2)
== END 2021-07-08 23:59 | disposition home or self-care (01) ==
LOC: BIMLAB 09:03
PROVIDERS: Physician Assistant; PCP Internal Medicine; Referring Provider Internal Medicine; Visit Provider Internal Medicine
DX: N18.4 Chronic kidney disease, stage 4 (severe) (principal); M10.9 Gout, unspecified
CPT/HCPCS: 36415; 80048; 82306; 83970; 84550

== ENCOUNTER 2021-07-26 08:36 | Outpatient (CLI) | payer OTHER, SELFPAY ==
[2021-07-26 10:42] LABS: Absolute Lymphocyte Count 1.27 X10^3/uL (0.83-4.51); Absolute Neutrophil Count 9.4 X10^3/uL (2.0-7.7); Basophil# 0.11 X10^3/uL; Basophil% 0.9 % (0-1); Eosinophil# 0.38 X10^3/uL; Eosinophils% 3.2 % (0-5); Hematocrit 41.4 % (40-54); Lymphocyte # 1.27 X10^3/ul (0.83-4.51); Lymphocyte % 10.6 % (19-41); Mean Corp Hgb Conc 31.4 g/dL (32-36); Mean Corpuscular Hgb 28.8 pg (27.0-32.0); Mean Corpuscular Volume 91.8 fL (80-94); Mean Platelet Vol. 10.4 fl (6.2-12.0); Monocyte# 0.73 X10^3/uL; Monocyte% 6.1 % (0-10); NRBC Flagged by Analyzer 0 % (0-5); Neutrophil # 9.44 X10^3/uL (2.7-7.7); Neutrophil % 78.7 % (47-70); Platelet Count 254 K/mm3 (150-450); RBC Distribution Width SD 47.2 fl (35.1-43.9); Red Blood Count 4.51 M/mm3 (4.6-6.2)
[2021-07-26 11:10] LABS: AST(SGOT) 12 U/L (15-37); Alanine Aminotransfer ALT/SGPT 39 U/L (16-61); Albumin, Serum 3.5 g/dL (3.2-5.0); Alkaline Phosphatase 92 U/L (45-117); Anion Gap 6 (5-15); BUN 61 mg/dL (7-18); BUN/Creat Ratio 13.8 RATIO (10-20); Calcium,Total 9.2 mg/dL (8.5-10.1); Chloride 103 mmol/L (98-107); Creatinine, Serum 4.43 mg/dL (0.70-1.30); EST Glomerular Filtration Rate 15 mL/min (>60); Est Glom Filt Rate - Afr Amer 18 mL/min (>60); Globulin 3.6 g/dL (2.2-4.2); Glucose 350 mg/dL (74-106); Potassium 4.7 mmol/L (3.5-5.1); Protein, Total 7.1 g/dL (6.4-8.2); Sodium Level 135 mmol/L (136-145)
== END 2021-07-26 23:59 | disposition home or self-care (01) ==
LOC: BIMLAB 08:37
PROVIDERS: PCP Internal Medicine; Referring Provider Nurse Practitioner Family; Visit Provider Nurse Practitioner Family
DX: K52.9 Noninfective gastroenteritis and colitis, unspecified (principal)
CPT/HCPCS: 36415; 80053; 85025

== ENCOUNTER 2021-07-27 14:27 | Emergency (ER) | payer OTHER, SELFPAY ==
[2021-07-27 14:27] VITALS: BP 182/94; PULSE 96; RESP 18; TEMP 36.4; O2SAT 96; BMI 35.0
--- NOTE | 2021-07-27 14:48 | EKG12_ITS ---
Test Reason : Blood Pressure : / mmHG Vent. Rate : 098 BPM Atrial Rate : 098 BPM P-R Int : 170 ms QRS Dur : 146 ms QT Int : 424 ms P-R-T Axes : 066 044 036 degrees QTc Int : 541 ms Normal sinus rhythm Right bundle branch block Abnormal ECG Confirmed by PARVIZ OLIVER, TANISHA ([id number]), restaurant expeditor RAKAN BEARDEN ([id number]) on 07/31/2021 11:18:06 AM Referred By: FLORINA Confirmed By:TANISHA JJ MD
--- NOTE | 2021-07-27 14:51 | EDS_ITS ---
HPI History of Present Illness Chief Complaint: Nausea/Vomiting Informant: patient Narrative Narrative: Patient presents with nausea vomiting soft stools and no dizziness. He states his symptoms started with nausea and vomiting on Thursday. He developed soft stools but no watery diarrhea. He states he has no abdominal pain. No fevers or chills. No chest pain or trouble breathing. He saw his doctor yesterday and was written for [employer]. He states that did help and he was able to eat and drink some yesterday. But today again it seems to be worse. He also has more dizziness. He has not seen blood in the vomitus. No blood in the stool. I asked the patient multiple times in multiple ways. It is difficult to ferret out the dizziness. It does not sound like this is vertigo. It sounds like he did not have the dizziness initially. But he has developed it as his symptoms go on. It is slightly related to motion but it generally gets worse if he gets up and walks around. Its not a true spinning sense is just an overall unsteadiness. [facility] Medical History Acute gastroenteritis Arthritis Diabetes Edentulous Former smoker Gout Hyperlipemia Hypertension Poor kidney function Preoperative clearance Redness of skin Right flank pain Wears glasses Home Medications cholecalciferol (vitamin D3) 25 mcg (1,000 unit) capsule 75 mcg PO DAILY cap 05/18/20 [History Last Taken Unknown] diltiazem HCl 240 mg tablet,extended release 24 hr 480 mg PO DAILY tab 05/18/20 [History Last Taken Unknown] insulin aspart U-100 100 unit/mL (3 mL) subcutaneous pen 35 unit SC TIDCM ml 07/20/20 [History Last Taken Unknown] acetaminophen 650 mg PO Q4H PRN 11/27/20 [History Last Taken Unknown] clotrimazole-betamethasone 1 %-0.05 % topical cream 1 applic TOPICAL BID 14 Days #45 g 11/28/20 [Rx Last Taken Unknown] allopurinol 300 mg tablet 300 mg PO DAILY #90 tab 01/30/21 [Rx Last Taken Unknown] aspirin 81 mg tablet,delayed release 81 mg PO DAILY #90 tab 04/08/21 [Rx Last Taken Unknown] atorvastatin 80 mg tablet 80 mg PO QHS #90 tab 04/08/21 [Rx Last Taken Unknown] furosemide 40 mg tablet 40 mg PO QAM #90 tab 06/10/21 [Rx Last Taken Unknown] dulaglutide 4.5 mg/0.5 mL subcutaneous pen injector 4.5 mg SC SUE #2 ml 07/05/21 [Rx Last Taken Unknown] hydralazine 100 mg tablet 100 mg PO TID 90 Days #270 tab 07/08/21 [Rx Last Taken Unknown] insulin glargine 100 unit/mL subcutaneous solution 45 unit SUBCUT BID ml 07/08/21 [History Last Taken Unknown] cyclobenzaprine 10 mg tablet 10 mg PO HS PRN #30 tab 07/22/21 [Rx Last Taken Unknown] ondansetron 4 mg disintegrating tablet 4 mg PO Q8H PRN #20 tab 07/26/21 [Rx Last Taken Unknown] promethazine 25 mg PO TID PRN #10 tab 07/27/21 [Rx Last Taken Unknown] promethazine [Promethegan] 25 mg IN Q6H PRN PRN #6 suppos. 07/27/21 [Rx Last Taken Unknown] Allergy/AdvReac Type Severity Reaction Status Date / Time hydrocodone AdvReac Space out Verified 07/27/21 14:30 Family History Father Diabetes Mother Hypertension Heart disease Other Arthritis Surgical History History of cataract extraction History of colonoscopy Social History Smoking Status: Former smoker quit date: 04/20/00 Tobacco: How many years used: 20 alcohol intake: current alcohol intake frequency: holidays/special occasions only Alcohol type: beer substance use type: does not use what type of physical activity do you participate in: none ROS ROS ED Constitutional Constitutional ED: Denies chills, fever(s) or subjective Eyes Eyes: Denies change in vision ENT ENT ED: Denies rhinorrhea Cardiovascular Cardiovascular: Denies chest pain or palpitations Respiratory/Chest Respiratory/Chest: Denies cough or dyspnea Gastrointestinal Gastrointestinal: Reports diarrhea, nausea and vomiting; Denies abdominal pain, constipation or melena Genitourinary Genitourinary ED: Denies dysuria or urinary frequency Musculoskeletal Musculoskeletal: Denies myalgias Integumentary Denies rash Neurologic Neurologic: Reports other Details: Dizziness as in history of present illness. ; Denies headache(s), paresthesias or weakness Endocrine Endocrinology: Denies polydipsia or polyuria Allergic/Immunologic Allergic/Immunologic ED: Denies mouth swelling or urticaria EXAM Physical Exam Const Vital Signs: 07/27/21 14:27 Temperature 97.6 F L Temperature Source Oral Pulse Rate 96 Respiratory Rate 18 Blood Pressure 182/94 H Blood Pressure Mean 123 Pulse Ox 96 Oxygen Delivery Method Room Air Positive well nourished and well developed General Appearance ED: well developed and NAD HEENT Reports dry mucous membranes Mouth ED: Yes dry mucous membranes Mouth: dry mucous membranes Eyes General Eye ED: Negative for pale conjunctiva or scleral icterus Neck no JVD Chest Wall inspection of chest normal Resp normal respiratory effort and clear to auscultation bilaterally Effort and Inspection: Negative for pain with movement Auscultation: Negative for rales, rhonchi or wheezes Cardio regular rate and regular rhythm GI normal to inspection, nondistended, normoactive bowel sounds, non-tender and non-distended GI Narrative: Abdomen is nontender. However, bowel sounds are slightly decreased Auscultation: hypoactive bowel sounds Palpation: soft Back/Spine no CVA tenderness Extremity normal to inspection General Extremety ED: Negative for tenderness Neuro oriented x3 Sensorium / Orientation: alert Psych mental status grossly normal Skin no rashes or lesions noted MDM MDM MDM Narrative Medical decision making narrative: Patient was rechecked. He is feeling better. His nausea is better. He drank fluids and ate crackers. He says he is feeling hungry now. His dizziness is quite a bit better. He said he just feels a lit tle bit lightheaded when he gets up and moves around but it significantly less. I will give him a little bit more fluids here. He has some Zofran left at home. I will write for Phenergan because it seemed to help him a lot. His blood work showed minimal elevation of white count at 12 7 which is nonspecific. He does have elevated creatinine at 3.95 but this is at or below his baseline. Glucose is also elevated at 274 but this is also near his prior levels. Lactate is negative. Liver function tests are negative. Lipase is up a little bit but he is not having abdominal pain. It is also only about 30% above normal not 3 times normal. He has had lipase higher than this on his last check but no history of documented pancreatitis. I do not think this lab test requires admission. X-ray showed no acute process. No sign of ileus or obstruction. His abdomen is benign to exam. Plan will be to get him home. We discussed that if he has further symptoms develops pain, fevers blood in the vomitus or stool or other concerns he should return. Lab Data Attestation: I reviewed the patient's lab results. Labs: Laboratory Results - last 24 hr 07/27/21 07/27/21 07/27/21 15:00 15:00 15:00 WBC 12.7 H RBC 4.37 L Hgb 12.7 L Hct 38.9 L MCV 89.0 MCH 29.1 MCHC 32.6 RDW Std Deviation 45.6 H RDW Coeff of Jessica 14.0 Plt Count 252 MPV 9.8 Immature Gran % (Auto) 0.500 Neut % (Auto) 88.9 H Lymph % (Auto) 6.1 L Stevens % (Auto) 2.9 Eos % (Auto) 1.1 Baso % (Auto) 0.5 Absolute Neuts (auto) 11.3 H Absolute Lymphs (auto) 0.78 L Nucleated RBC % 0 Sodium 138 Potassium 4.6 Chloride 108 H Carbon Dioxide 24.0 Anion Gap 6 BUN 55 H Creatinine 3.95 H Estim Creat Clear Calc 19.06 Est GFR (MDRD) Af Amer 20 L Est GFR (MDRD) Non-Af 17 L BUN/Creatinine Ratio 13.9 Glucose 274 H Lactic Acid 1.3 Calcium 9.4 Total Bilirubin 0.30 AST 20 ALT 41 Alkaline Phosphatase 90 Troponin I High Sens 7 Total Protein 6.9 Albumin 3.3 Globulin 3.6 Albumin/Globulin Ratio 0.9 Lipase 518 H Radiography Diagnostic Testing: Clinical Impression(s) from Imaging Studies Acute Abdomen Series 07/27/21 15:50 IMPRESSION: Nonacute x-ray examination of the chest, abdomen, and pelvis. Electronically Signed: Juan Fernandez MD ([place]) at 16:12 EDT , EKG Initial EKG: Comments: EKG done for nausea vomiting and diabetic. EKG read by me shows normal sinus rhythm with an overall rate of 98. No ventricular ectopy. There is an irregular baseline but no sign of acute ST elevation or depression. There is right bundle branch block. The EKG is similar to 11/28/2020. Discharge Plan Triage Chief Complaint: Nausea/Vomiting ED Provider: Anish Boston Dx/Rx/DC Orders Clinical Impression: Nausea vomiting and diarrhea, Mild dehydration, Hyperglycemia Instructions: ED Vomiting (Adult) Prescriptions: New promethazine [Promethegan] 25 MG suppository 25 mg IN Q6H PRN PRN (Reason: Nausea) Qty: 6 RF: 0 promethazine 25 mg tablet 25 mg PO TID PRN (Reason: nausea and vomiting) Qty: 10 RF: 0 No Action cholecalciferol (vitamin D3) 25 mcg (1,000 unit) capsule 75 mcg PO DAILY RF: 0 diltiazem HCl 240 mg tablet extended release 24 hr 480 mg PO DAILY RF: 0 insulin aspart U-100 100 unit/mL (3 mL) insulin pen 35 unit SC TIDCM RF: 0 clotrimazole-betamethasone 1-0.05 % cream 1 applic topical BID 14 Days Qty: 45 RF: 1 furosemide 40 mg tablet 40 mg PO QAM Qty: 90 RF: 1 hydralazine 100 mg tablet 100 mg PO TID 90 Days Qty: 270 RF: 1 ondansetron 4 mg tablet,disintegrating 4 mg PO Q8H PRN (Reason: nausea and vomiting) Qty: 20 RF: 0 insulin glargine 100 unit/mL solution 45 unit subcut BID RF: 0 acetaminophen 325 mg Tablet 650 mg PO Q4H PRN (Reason: Pain) RF: 0 allopurinol 300 mg tablet 300 mg PO DAILY Qty: 90 RF: 1 aspirin 81 mg tablet,delayed release (DR/EC) 81 mg PO DAILY Qty: 90 RF: 3 atorvastatin 80 mg tablet 80 mg PO QHS Qty: 90 RF: 3 dulaglutide 4.5 mg/0.5 mL pen injector 4.5 mg SC SUE Qty: 2 RF: 1 cyclobenzaprine 10 mg tablet 10 mg PO HS PRN (Reason: muscle spasm) Qty: 30 RF: 0 Primary Care Provider: Shukri Francisco Referrals: Shukri Francisco MD [Primary Care Provider] - 1-2 Days if not improving Disposition Disposition: Home, Self Care
[2021-07-27] MEDS: proMETHazine 25 MG/ML Syringe 12.5 MG IM (15:17)
[2021-07-27] MEDS: 0.9% Normal Saline 1,000 ML 1000 ML IV (15:17)
[2021-07-27] MEDS: Ondansetron 4 MG/2 ML Vial IV (15:17)
[2021-07-27 15:29] LABS: Absolute Lymphocyte Count 0.78 X10^3/uL (0.83-4.51); Absolute Neutrophil Count 11.3 X10^3/uL (2.0-7.7); Basophil# 0.07 X10^3/uL; Basophil% 0.5 % (0-1); Eosinophil# 0.14 X10^3/uL; Eosinophils% 1.1 % (0-5); Hematocrit 38.9 % (40-54); Hemoglobin 12.7 g/dL (13.0-16.5); Lymphocyte # 0.78 X10^3/ul (0.83-4.51); Lymphocyte % 6.1 % (19-41); Mean Corp Hgb Conc 32.6 g/dL (32-36); Mean Corpuscular Hgb 29.1 pg (27.0-32.0); Mean Platelet Vol. 9.8 fl (6.2-12.0); Monocyte# 0.37 X10^3/uL; Monocyte% 2.9 % (0-10); NRBC Flagged by Analyzer 0 % (0-5); Neutrophil % 88.9 % (47-70); Platelet Count 252 K/mm3 (150-450); RBC Distribution Width SD 45.6 fl (35.1-43.9); Red Blood Count 4.37 M/mm3 (4.6-6.2); White Blood Count 12.7 K/mm3 (4.4-11.0)
[2021-07-27 15:44] LABS: Lactic Acid 1.3 mmol/L (0.4-1.9)
--- NOTE | 2021-07-27 15:50 | RAD_ITS ---
STUDY: X-RAY - ACUTE ABDOMINAL SERIES REASON FOR EXAM: Male, 60 years old. nv for a couple days now having dizziness. seen dr davila yesterday and cassandra gutierrez. per pt not working TECHNIQUE: Single view of the chest. Supine, and erect view(s) of the abdomen were obtained. COMPARISON: None. FINDINGS: The lungs are clear and expanded. Normal size heart. Normal mediastinum and emile. Normal visualized pulmonary arteries. Normal visualized aortic arch and descending thoracic aorta. There is a non-specific bowel gas pattern. The soft tissue structures of the abdomen and pelvis are unremarkable. Degenerative changes of the lumbar spine and bilateral hips. Arterial sclerosis. RAD/Acute Abdomen Inc Chest IMPRESSION: Nonacute x-ray examination of the chest, abdomen, and pelvis. Electronically Signed: Juan Fernandez MD ([place]) at 16:12 EDT ,
[2021-07-27 15:52] LABS: ALB/GLOB Ratio 0.9 RATIO (0.9-2.4); AST(SGOT) 20 U/L (15-37); Alanine Aminotransfer ALT/SGPT 41 U/L (16-61); Albumin, Serum 3.3 g/dL (3.2-5.0); Alkaline Phosphatase 90 U/L (45-117); Anion Gap 6 (5-15); BUN 55 mg/dL (7-18); BUN/Creat Ratio 13.9 RATIO (10-20); Calcium,Total 9.4 mg/dL (8.5-10.1); Chloride 108 mmol/L (98-107); Creatinine, Serum 3.95 mg/dL (0.70-1.30); EST Glomerular Filtration Rate 17 mL/min (>60); Est Glom Filt Rate - Afr Amer 20 mL/min (>60); Estimated Creatinine Clearance 19.06 ml/min; Globulin 3.6 g/dL (2.2-4.2); Glucose 274 mg/dL (74-106); Lipase 518 U/L (73-393); Potassium 4.6 mmol/L (3.5-5.1); Protein, Total 6.9 g/dL (6.4-8.2); Sodium Level 138 mmol/L (136-145); Troponin-I HS 7 pg/mL (3.0-78.0)
[2021-07-27 17:25] LABS: Bacteria 0 SEEN /hpf (None Seen); Mucous, Urine 0 SEEN /hpf (<or=2+); Squamous Epithelial Cells - UA 0 SEEN /hpf (0-5)
[2021-07-27 17:26] LABS: Color, Urine Yellow (Yellow); Glucose, Dipstick 1000 mg/dl (Normal); Ketone-Dipstick Negative (Negative); Leukocyte Esterase-Dipstick Negative /ul (Negative); Nitrite-Dipstick Negative (Negative); Occult Blood-Urine 10 /ul (Negative); Protein-Dipstick 500 mg/dl (Negative); Specific Gravity, Urine 1.015 (1.002-1.030); Urine Bilirubin Dipstick Negative (Negative); Urine Clarity Clear (Clear); Urine Urobilinogen Normal (Normal)
[2021-07-27 17:41] LABS: Fine Granular Cast- Urine 0-5 SEEN /lpf (0-5); Hyaline Cast 0-5 SEEN /lpf (0-5)
[2021-07-27 17:42] LABS: Red Blood Cells-Urine 0-5 SEEN /hpf (0-5); White Blood Cells 0-5 SEEN /hpf (0-5)
[2021-07-27 18:41] VITALS: BP 167/82; PULSE 78; RESP 16; O2SAT 98
== END 2021-07-27 18:43 | disposition home or self-care (01) ==
PROVIDERS: Emergency Provider Emergency Medicine; PCP Internal Medicine; Visit Provider Emergency Medicine
DX: R11.2 Nausea with vomiting, unspecified (principal); E11.65 Type 2 diabetes mellitus with hyperglycemia; Z79.4 Long term (current) use of insulin; R19.7 Diarrhea, unspecified; I10 Essential (primary) hypertension; E78.5 Hyperlipidemia, unspecified; E86.0 Dehydration; M19.90 Unspecified osteoarthritis, unspecified site; Z79.82 Long term (current) use of aspirin; Z79.899 Other long term (current) drug therapy; Z87.891 Personal history of nicotine dependence
CPT/HCPCS: 74022; 80053; 81001; 83605; 83690; 84484; 85025; 93005; 96361; 96372; 96374; 99285; J7030; A4216; J2405